=== PATIENT | male | born 1945 | race Caucasian/White ===

== ENCOUNTER 2018-05-07 13:38 | Inpatient (IN) | payer MEDICARE, OTHER ==
[2018-05-07] VITALS (7 sets, daily range): BP systolic 122–140; BP diastolic 62–78
[~2018-05-07] VITALS: Ht 172.7 cm; Wt 75.8 kg
[2018-05-07] MEDS ORDERED: NITROGLYCERIN SUBLINGUAL 0.4 MG BOTTLE OF 25. SL ONE (13:55)
[2018-05-07] MEDS: NITROGLYCERIN SUBLINGUAL 0.4 MG BOTTLE OF 25. SL PRN ×2 (13:58→14:06)
[2018-05-07 14:03] LABS: BASO # 0.1 x10^3/uL (0.0-0.2); BASO % 1 % (0-3); EOS # 0.4 x10^3/uL (0.0-0.7); EOS % 4 % (0-3); HEMATOCRIT 53.4 % (39.0-53.0); HEMOGLOBIN 17.7 g/dL (13.0-17.5); LYMPH # 3.9 x10^3/uL (1.0-4.8); LYMPH % 35 % (24-48); MEAN CORPUSCULAR HEMOGLOBIN 30 pg (25-35); MEAN CORPUSCULAR HGB CONC 33 g/dL (31-37); MEAN CORPUSCULAR VOLUME 91 fL (79-100); MONO # 0.6 x10^3/uL (0.0-1.1); MONO % 6 % (0-9); NEUT # 6.1 x10^3uL (1.8-7.7); NEUT % 54 % (31-73); PLATELET COUNT 206 x10^3/uL (140-400); RED BLOOD COUNT 5.88 x10^6/uL (4.30-5.70); RED CELL DISTRIBUTION WIDTH 13.7 % (11.5-14.5); WHITE BLOOD COUNT 11.2 x10^3/uL (4.0-11.0)
--- NOTE | 2018-05-07 14:09 | RAD ---
EXAM: CHEST 1 VIEW History: Acute respiratory failure COMPARISON: None available. TECHNIQUE: Single portable radiograph of the chest FINDINGS: Low lung volumes and technique accentuates heart size and pulmonary vascularity. Mild cardiomegaly. Left-sided cardiac pacemaker, AICD is identified. There is mild diffuse prominent appearing bilateral interstitial lung markings. IMPRESSION: 1. Mild diffuse prominent appearing bilateral interstitial lung markings likely congestive changes. Electronically signed by: Darion Buenrostro MD (05/07/2018 2:06 PM) [place] [id number]
[2018-05-07 14:13] LABS: BASE EXCESS ABG -4 mmol/L (-3-3); HCO3 ABG 24 mmol/L (21-28); PCO2 ABG 58 mmHg (35-46); PO2 ABG 201 mmHg (65-108); SAT O2 ABG 99 % (92-99)
[2018-05-07 14:13] LABS: PROTHROMBIN TIME PATIENT 13.6 SEC (11.7-14.0)
[2018-05-07 14:14] LABS: CREATININE 1.4 mg/dL (0.7-1.3); GFR 49.8
[2018-05-07 14:16] LABS: FIO2 ABG 60
[2018-05-07 14:19] LABS: ALBUMIN 4.3 g/dL (3.4-5.0); ALBUMIN/GLOBULIN RATIO 1.1 (1.0-1.7); TOTAL BILIRUBIN 1.2 mg/dL (0.2-1.0); TOTAL PROTEIN 8.1 g/dL (6.4-8.2)
--- NOTE | 2018-05-07 14:36 | PHYS DOC ---
Past Medical History Past Medical History: CAD, GERD, High Cholesterol, Hypertension, Pneumonia, Other Additional Past Medical Histor: heart valve Past Surgical History: Cholecystectomy, Pacemaker Additional Past Surgical Histo: with defibrillator; cardiac stent; Alcohol Use: Rarely Drug Use: None Adult General Chief Complaint Chief Complaint: SHORTNESS OF BREATH HPI HPI Patient is a 72 year old m who presents to the ED in acute respiratory failure O2 sat of 81 at triage. Unable to provide history 2/2 acute respiratory failure. Per spouse at bedside pt had acute respiratory failure approx 30 mins prior to arrival, progressed rapidly. Pt denies any chest pain. H/o CAD s/p 3 stents, H/o CHF, s/p pacemaker/defibrillator. H/o hospitalizations for CHF exacerbations but has not had any in the past 8 years. Compliant with home medications. not on lasix. Spouse unable to name home medications. Does not believe he is on a OAC. No history of recent travel/ prolonged. No LE pain/swelling. Review of Systems Review of Systems Unable to obtain 2/2 acuity. Current Medications Current Medications Current Medications Medications (Trade) Dose Ordered Sig/Kelsie Start Time Stop Time Status Last Admin Dose Admin Aspirin (Children'S Aspirin) 324 mg 1X ONCE 05/07/18 14:45 05/07/18 14:46 DC Nitroglycerin (Nitrostat) 0.4 mg STK-MED ONCE 05/07/18 13:55 05/07/18 13:56 DC Allergies Allergies Allergies Coded Allergies Type Severity Reaction Last Updated Verified No Known Drug Allergies 05/07/18 No Physical Exam Physical Exam Constitutional: severe distress, acutely ill appearing. HENT: Normocephalic, atraumatic, Eyes: PERRLA, EOMI, Neck: Bilateral distension of neck veins, Cardiovascular:Tachycardic Lungs & Thorax: Diffuse crackles, tachypneic, severe respiratory distress, significant use of accessory respiratory muscles Abdomen: , soft, no tenderness, no masses, no pulsatile masses. [] Skin: Pale, diffusely baker/blue hue to face. Back: No tenderness, no CVA tenderness. [] Extremities: Cap refill Approx 4 secs to distal extremities, no Edema to bilateral LE Neurologic: Alert and oriented X 3, no focal deficits noted. [] Psychologic: Affect normal, judgement normal, mood normal. [] Current Patient Data Vital Signs Vital Signs Date Time Temp Pulse Resp B/P (MAP) Pulse Ox O2 Delivery O2 Flow Rate FiO2 05/07/18 14:13 102 28 165/89 (114) 99 BiPAP/CPAP 05/07/18 13:38 96.9 96.9 Lab Values Laboratory Tests Test 05/07/18 13:47 05/07/18 13:51 05/07/18 14:00 White Blood Count 11.2 x10^3/uL (4.0-11.0) H Red Blood Count 5.88 x10^6/uL (4.30-5.70) H Hemoglobin 17.7 g/dL (13.0-17.5) H Hematocrit 53.4 % (39.0-53.0) H Mean Corpuscular Volume 91 fL (79-100) Mean Corpuscular Hemoglobin 30 pg (25-35) Mean Corpuscular Hemoglobin Concent 33 g/dL (31-37) Red Cell Distribution Width 13.7 % (11.5-14.5) Platelet Count 206 x10^3/uL (140-400) Neutrophils (%) (Auto) 54 % (31-73) Lymphocytes (%) (Auto) 35 % (24-48) Monocytes (%) (Auto) 6 % (0-9) Eosinophils (%) (Auto) 4 % (0-3) H Basophils (%) (Auto) 1 % (0-3) Neutrophils # (Auto) 6.1 x10^3uL (1.8-7.7) Lymphocytes # (Auto) 3.9 x10^3/uL (1.0-4.8) Monocytes # (Auto) 0.6 x10^3/uL (0.0-1.1) Eosinophils # (Auto) 0.4 x10^3/uL (0.0-0.7) Basophils # (Auto) 0.1 x10^3/uL (0.0-0.2) Prothrombin Time 13.6 SEC (11.7-14.0) Prothrombin Time INR 1.1 (0.8-1.1) PTT 24 SEC (24-38) Sodium Level 136 mmol/L (136-145) Potassium Level 4.0 mmol/L (3.5-5.1) Chloride Level 96 mmol/L (98-107) L Carbon Dioxide Level 30 mmol/L (21-32) Anion Gap 10 (6-14) Blood Urea Nitrogen 16 mg/dL (8-26) Creatinine 1.4 mg/dL (0.7-1.3) H Estimated GFR (Cockcroft-Gault) 49.8 BUN/Creatinine Ratio 11 (6-20) Glucose Level 255 mg/dL (70-99) H Lactic Acid Level 2.9 mmol/L (0.4-2.0) H Calcium Level 9.0 mg/dL (8.5-10.1) Total Bilirubin 1.2 mg/dL (0.2-1.0) H Aspartate Amino Transferase (AST) 17 U/L (15-37) Alanine Aminotransferase (ALT) 20 U/L (16-63) Alkaline Phosphatase 84 U/L (46-116) Troponin I Quantitative 0.031 ng/mL (0.000-0.055) NZ-Cxd-Z-Type Natriuretic Peptide 1003 pg/mL (0-124) H Total Protein 8.1 g/dL (6.4-8.2) Albumin 4.3 g/dL (3.4-5.0) Albumin/Globulin Ratio 1.1 (1.0-1.7) Procalcitonin < 0.10 ng/mL (0.00-0.10) POC Troponin I 0.01 ng/ml (<0.08) O2 Saturation 99 % (92-99) Arterial Blood pH 7.24 (7.35-7.45) L Arterial Blood pCO2 at Patient Temp 58 mmHg (35-46) H Arterial Blood pO2 at Patient Temp 201 mmHg (65-108) H Arterial Blood HCO3 24 mmol/L (21-28) Arterial Blood Base Excess -4 mmol/L (-3-3) L FiO2 60 Laboratory Tests 05/07/18 13:47 Laboratory Tests 05/07/18 13:47 EKG EKG Sinus, tachycardia, diffuse non-specific ST segment changes. [] Radiology/Procedures Radiology/Procedures CXR: IMPRESSION: 1. Mild diffuse prominent appearing bilateral interstitial lung markings likely congestive changes.[] Course & Med Decision Making Course & Med Decision Making Pertinent Labs and Imaging studies reviewed. (See chart for details) []Pt with severe respiratory distress on arrival. O2 as low as 69% on RA. Placed on NRB @15L with no change. Transferred to BiPAP on arrival of RT. HTN, h /o CHF. ?HTN flash pulmonary edema. Given NTG SL x 2 with improvement of symptoms. Tolerating BiPAP well but requiring Inspiratory pressure of 18 to maintain TV of close to 500. Very HTN on arrival with systolic BP 200s, clinical concern for flash pulmonary edema and given NTG SL x 2. BP decreased to 150 systolic over 10 mins with no further medications given. ABG as above with acute respiratory acidosis with question of some questionable underlying metabolic acidosis. Discussed with Dr. Mariee enrollment consultant for hospital service who is agreeable to admission. Patient remains critically ill and will be transferred to the ICU. CXR with some edema but does not seem to correlate with the severity of his acute presentation. There is history of cardiac valvular disease but family and pt do not have any details. Will get stat ECHO to evaluate for decompensated valvular disease as possible pathology as well. Consultations placed for pulmonology and cardiology per Dr. Mariee' s request. Will give patient aspirin. Patient is remained tachycardic but overall improved with control of acute respiratory failure. Dragon Disclaimer Dragon Disclaimer This electronic medical record was generated, in whole or in part, using a voice recognition dictation system. Departure Departure Impression: Primary Impression: Acute respiratory failure Additional Impressions: Congestive heart failure Congestive heart failure due to hypertension Flash pulmonary edema Disposition: ADMITTED INPATIENT Admitting Physician: Rocco Connolly Condition: CRITICAL Referrals: UNKNOWN PCP NAME (PCP) Critical Care Time Critical care time was [65] minutes exclusive of procedures. Time spent in chart review, immediately management the patient, repeat evaluations, bedside care, result review, and discussion with other physician(s) Problem Qualifiers SHELLEY WINSTON DO May 07, 2018 14:36
[2018-05-07] MEDS ORDERED: ASPIRIN CHEWABLE 81 MG TABLET. PO ONE (14:45)
--- NOTE | 2018-05-07 14:57 | PDOC1 ---
History and Physical Date of Admission Date of Admission DATE: 05/07/18 TIME: 14:57 Identification/Chief Complaint Chief Complaint seen in ER today with ,72 year old m who presents to the ED in acute respiratory failure O2 sat of 81 at triage. was able to provide history 2/2 acute respiratory failure. notes he does not adhere to strict sodium diet avoidance Per spouse at bedside pt had acute respiratory failure approx 30 mins prior to arrival, progressed rapidly. Pt denies any chest pain. H/o CAD s/p 3 stents, H/o CHF, s/p pacemaker/defibrillator. H/o hospitalizations for CHF exacerbations but has not had any in the past 8 years. They were shopping at the [employer] today, suddenly felt SOA, Usually follows play reader at [facility] Past Medical History Past Medical History Past Medical History Past Medical History: CAD, GERD, High Cholesterol, Hypertension, Pneumonia, Other Additional Past Medical Histor: heart valve Past Surgical History: Cholecystectomy, Pacemaker Additional Past Surgical Histo: with defibrillator; cardiac stent; Alcohol Use: Rarely Drug Use: None family hx COPD Cardiovascular: Hyperlipidemia Pulmonary: COPD Musculoskeletal: Osteoarthritis ENT: No pertinent hx Family History Family History: Chronic Bronchitis Social History Smoke: 1 pack per day ALCOHOL: rare Drugs: None Current Medications Current Medications Current Medications Nitroglycerin (Nitrostat) 0.4 mg PRN Q5MIN PRN SL CHEST PAIN Last administered on 05/07/18at 14:06; Start 05/07/18 at 14:00 Nitroglycerin (Nitrostat) 0.4 mg STK-MED ONCE SL ; Start 05/07/18 at 13:55; Stop 05/07/18 at 13:56; Status DC Aspirin (Children'S Aspirin) 324 mg 1X ONCE PO ; Start 05/07/18 at 14:45; Stop 05/07/18 at 14:46; Status DC Allergies Allergies: Coded Allergies: No Known Drug Allergies (Unverified , 05/07/18) ROS Review of System 14 PT ROS OTHERWISE NEG General: YES: Fatigue PSYCHOLOGICAL ROS: No: Anxiety, Behavioral Disorder, Concentration difficultie , Decreased libido, Depression, Disorientation, Hallucinations, Hostility, Irritablity, Memory difficulties, Mood Swings, Obsessive thoughts, Physical abuse, Sexual abuse, Sleep disturbances, Suicidal ideation, Other Eyes: No Blurry vision, No Decreased vision, No Double vision, No Dry eyes, No Excessive tearing, No Eye Pain, No Itchy Eyes, No Loss of vision, No Photophobia , No Scotomata, No Uses contacts, No Uses glasses, No Other Hematological and Lymphatic: No: Bleeding Problems, Blood Clots, Blood Transfusions, Brusing, Night Sweats, Pallor, Swollen Lymph Nodes, Other Respiratory: YES: Cough, Shortness of breath, SOB with excertion Gastrointestinal: No Nausea, No Vomiting, No Abdominal Pain, No Diarrhea, No Constipation, No Melena, No Hematochezia, No Other Musculoskeletal: No Gait Disturbance, No Joint Pain, No Joint Stiffness, No Joint Swelling, No Muscle Pain, No Muscular Weakness, No Pain In:, No Swelling In:, No Other Neurological: No Behavorial Changes, No Bowel/Bladder ControlChng, No Confusion , No Dizziness, No Gait Disturbance, No Headaches, No Impaired Coord/balance, No Memory Loss, No Numbness/Tingling, No Seizures, No Speech Problems, No Tremors, No Visual Changes, No Weakness, No Other Physical Exam Physical Exam Physical Exam Physical Exam Constitutional: MOD -severe distress, acutely ill appearing. ON BIPAP HENT: Normocephalic, atraumatic, Eyes: PERRLA, EOMI, Neck: Bilateral distension of neck veins, Cardiovascular:Tachycardic Lungs & Thorax: Diffuse crackles, tachypneic, severe respiratory distress, significant use of accessory respiratory muscles Abdomen: , soft, no tenderness, no masses, no pulsatile masses. [] Skin: Pale, diffusely baker/blue hue to face. Back: No tenderness, no CVA tenderness. [] Extremities: Cap refill Approx 4 secs to distal extremities, no Edema to bilateral LE Neurologic: Alert and oriented X 3, no focal deficits noted. [] Psychologic: Affect normal, judgement normal, mood normal. [] General: Oriented X3, Cooperative, moderate distress HEENT: PERRLA, EOMI, Mucous membr. moist/pink Heart: jugular vein distention Breasts: Not examined Abdomen: Normal bowel sounds, Soft Rectal Exam: not examined Extremities: No cyanosis Neuro: Normal speech, Cranial nerves 3-12 NL Psych/Mental Status: Mental status NL Vitals Vitals Vital Signs Date Time Temp Pulse Resp B/P (MAP) Pulse Ox O2 Delivery O2 Flow Rate FiO2 2/12/19 14:13 102 28 165/89 (114) 99 BiPAP/CPAP 05/07/18 13:38 96.9 96.9 Labs Labs Laboratory Tests Test 05/07/18 13:47 05/07/18 13:51 05/07/18 14:00 White Blood Count 11.2 x10^3/uL (4.0-11.0) Red Blood Count 5.88 x10^6/uL (4.30-5.70) Hemoglobin 17.7 g/dL (13.0-17.5) Hematocrit 53.4 % (39.0-53.0) Mean Corpuscular Volume 91 fL (79-100) Mean Corpuscular Hemoglobin 30 pg (25-35) Mean Corpuscular Hemoglobin Concent 33 g/dL (31-37) Red Cell Distribution Width 13.7 % (11.5-14.5) Platelet Count 206 x10^3/uL (140-400) Neutrophils (%) (Auto) 54 % (31-73) Lymphocytes (%) (Auto) 35 % (24-48) Monocytes (%) (Auto) 6 % (0-9) Eosinophils (%) (Auto) 4 % (0-3) Basophils (%) (Auto) 1 % (0-3) Neutrophils # (Auto) 6.1 x10^3uL (1.8-7.7) Lymphocytes # (Auto) 3.9 x10^3/uL (1.0-4.8) Monocytes # (Auto) 0.6 x10^3/uL (0.0-1.1) Eosinophils # (Auto) 0.4 x10^3/uL (0.0-0.7) Basophils # (Auto) 0.1 x10^3/uL (0.0-0.2) Prothrombin Time 13.6 SEC (11.7-14.0) Prothromb Time International Ratio 1.1 (0.8-1.1) Activated Partial Thromboplast Time 24 SEC (24-38) Sodium Level 136 mmol/L (136-145) Potassium Level 4.0 mmol/L (3.5-5.1) Chloride Level 96 mmol/L (98-107) Carbon Dioxide Level 30 mmol/L (21-32) Anion Gap 10 (6-14) Blood Urea Nitrogen 16 mg/dL (8-26) Creatinine 1.4 mg/dL (0.7-1.3) Estimated GFR (Cockcroft-Gault) 49.8 BUN/Creatinine Ratio 11 (6-20) Glucose Level 255 mg/dL (70-99) Lactic Acid Level 2.9 mmol/L (0.4-2.0) Calcium Level 9.0 mg/dL (8.5-10.1) Total Bilirubin 1.2 mg/dL (0.2-1.0) Aspartate Amino Transf (AST/SGOT) 17 U/L (15-37) Alanine Aminotransferase (ALT/SGPT) 20 U/L (16-63) Alkaline Phosphatase 84 U/L (46-116) Troponin I Quantitative 0.031 ng/mL (0.000-0.055) OX-Pfb-B-Type Natriuretic Peptide 1003 pg/mL (0-124) Total Protein 8.1 g/dL (6.4-8.2) Albumin 4.3 g/dL (3.4-5.0) Albumin/Globulin Ratio 1.1 (1.0-1.7) Procalcitonin < 0.10 ng/mL (0.00-0.10) Bedside Troponin I 0.01 ng/ml (<0.08) O2 Saturation 99 % (92-99) Arterial Blood pH 7.24 (7.35-7.45) Arterial Blood pCO2 at Patient Temp 58 mmHg (35-46) Arterial Blood pO2 at Patient Temp 201 mmHg (65-108) Arterial Blood HCO3 24 mmol/L (21-28) Arterial Blood Base Excess -4 mmol/L (-3-3) FiO2 60 Laboratory Tests Test 05/07/18 13:47 05/07/18 13:51 05/07/18 14:00 White Blood Count 11.2 x10^3/uL (4.0-11.0) Red Blood Count 5.88 x10^6/uL (4.30-5.70) Hemoglobin 17.7 g/dL (13.0-17.5) Hematocrit 53.4 % (39.0-53.0) Mean Corpuscular Volume 91 fL (79-100) Mean Corpuscular Hemoglobin 30 pg (25-35) Mean Corpuscular Hemoglobin Concent 33 g/dL (31-37) Red Cell Distribution Width 13.7 % (11.5-14.5) Platelet Count 206 x10^3/uL (140-400) Neutrophils (%) (Auto) 54 % (31-73) Lymphocytes (%) (Auto) 35 % (24-48) Monocytes (%) (Auto) 6 % (0-9) Eosinophils (%) (Auto) 4 % (0-3) Basophils (%) (Auto) 1 % (0-3) Neutrophils # (Auto) 6.1 x10^3uL (1.8-7.7) Lymphocytes # (Auto) 3.9 x10^3/uL (1.0-4.8) Monocytes # (Auto) 0.6 x10^3/uL (0.0-1.1) Eosinophils # (Auto) 0.4 x10^3/uL (0.0-0.7) Basophils # (Auto) 0.1 x10^3/uL (0.0-0.2) Prothrombin Time 13.6 SEC (11.7-14.0) Prothromb Time International Ratio 1.1 (0.8-1.1) Activated Partial Thromboplast Time 24 SEC (24-38) Sodium Level 136 mmol/L (136-145) Potassium Level 4.0 mmol/L (3.5-5.1) Chloride Level 96 mmol/L (98-107) Carbon Dioxide Level 30 mmol/L (21-32) Anion Gap 10 (6-14) Blood Urea Nitrogen 16 mg/dL (8-26) Creatinine 1.4 mg/dL (0.7-1.3) Estimated GFR (Cockcroft-Gault) 49.8 BUN/Creatinine Ratio 11 (6-20) Glucose Level 255 mg/dL (70-99) Lactic Acid Level 2.9 mmol/L (0.4-2.0) Calcium Level 9.0 mg/dL (8.5-10.1) Total Bilirubin 1.2 mg/dL (0.2-1.0) Aspartate Amino Transf (AST/SGOT) 17 U/L (15-37) Alanine Aminotransferase (ALT/SGPT) 20 U/L (16-63) Alkaline Phosphatase 84 U/L (46-116) Troponin I Quantitative 0.031 ng/mL (0.000-0.055) IB-Csn-B-Type Natriuretic Peptide 1003 pg/mL (0-124) Total Protein 8.1 g/dL (6.4-8.2) Albumin 4.3 g/dL (3.4-5.0) Albumin/Globulin Ratio 1.1 (1.0-1.7) Procalcitonin < 0.10 ng/mL (0.00-0.10) Bedside Troponin I 0.01 ng/ml (<0.08) O2 Saturation 99 % (92-99) Arterial Blood pH 7.24 (7.35-7.45) Arterial Blood pCO2 at Patient Temp 58 mmHg (35-46) Arterial Blood pO2 at Patient Temp 201 mmHg (65-108) Arterial Blood HCO3 24 mmol/L (21-28) Arterial Blood Base Excess -4 mmol/L (-3-3) FiO2 60 Images Images EXAM: CHEST 1 VIEW History: Acute respiratory failure COMPARISON: None available. TECHNIQUE: Single portable radiograph of the chest FINDINGS: Low lung volumes and technique accentuates heart size and pulmonary vascularity. Mild cardiomegaly. Left-sided cardiac pacemaker, AICD is identified. There is mild diffuse prominent appearing bilateral interstitial lung markings. IMPRESSION: 1. Mild diffuse prominent appearing bilateral interstitial lung markings likely congestive changes. Electronically signed by: Darion Buenrostro MD (05/07/2018 2:06 PM) [place] [id number] VTE Prophylaxis Ordered VTE Prophylaxis Devices: Yes VTE Pharmacological Prophylaxi: Yes Assessment/Plan Assessment/Plan IMPRESSION 1. aCUTE HYPOXIC RESP FAILURE 2. COPD EXAC, Acute 3. flash pulmonary edema 4. hx cardiomyopathy 5. tobacco abuse, continuous plan icu bed BIPAP SUPPORT PULM CONSULT Cardiology consult agapito gi and dvt prophylaxis iv diuresis when bp stabilizes ECHO IN ER 46 min cc time SALBADOR SULLIVAN MD May 07, 2018 14:57
[2018-05-07] MEDS ORDERED: PIP/TAZO PER PHARMACY MC PRN (16:30)
[2018-05-07] MEDS ORDERED: PIPERACILLIN/TAZOBACTAM 3.375 GM in IV NORMAL SALINE 50ML 50 ML IV SCH (17:00)
--- NOTE | 2018-05-07 17:00 | CARD ---
MR#: [id number] Date of Study: 05/07/2018 Ordering Physician: SHELLEY WINSTON, Referring Physician: SHELLEY WINSTON, Tech: Rose Pickett, [facility] APPROVED REPORT EXAM: LIMITED Two-dimensional and M-mode echocardiogram with Doppler and color Doppler. Other Information Quality : AverageHR: 90bpm Rhythm : NSR INDICATION Shortness of breath 2D DIMENSIONS Left Atrium(2D)2.9 (1.6-4.0cm)IVSd0.9 (0.7-1.1cm) Aortic Root(2D)3.4 (2.0-3.7cm)LVDd5.3 (3.9-5.9cm) LVOT Diameter2.2 (1.8-2.4cm)PWd0.7 (0.7-1.1cm) LVDs4.9 (2.5-4.0cm)FS (%) 6.4 % SV18.9 ml Aortic Valve AoV Peak Sebastian.91.5cm/sAoV VTI13.1cm AO Peak GR.3.4mmHgLVOT VTI 9.69cm AO Mean GR.2mmHgAVA (VTI)2.80cm2 AI P 1/2 [id number] LEFT VENTRICLE Technically difficult study. The left ventricle is normal size. There is mild concentric left ventric ular hypertrophy. The ejection fraction is mildly decreased. The Ejection Fraction is estimated at 40 %. There is mild global hypokinesis of the left ventricle. RIGHT VENTRICLE The right ventricle is normal size. There is normal right ventricular wall thickness. Systolic functi on is mildly reduced. Device lead noted in RV/RA. ATRIA The left atrium is mildly dilated. The right atrium size is normal. AORTIC VALVE The aortic valve is trileaflet. The aortic valve is normal in structure and function. Doppler and Col or Flow revealed mild to moderate aortic regurgitation. There is no significant aortic valvular steno sis. MITRAL VALVE The mitral valve is normal in structure and function. There is no evidence of mitral valve prolapse. There is no mitral valve stenosis. Doppler and Color Flow revealed mild mitral valve regurgitation no cecilia. TRICUSPID VALVE The tricuspid valve is normal in structure and function. Doppler and Color Flow revealed mild tricusp id valve regurgitation noted. There is no tricuspid valve prolapse or vegetation. There is no tricusp id valve stenosis. PULMONIC VALVE Pulmonic valve not well visualized. GREAT VESSELS The aortic root is normal in size. PERICARDIAL EFFUSION There is a trace pericardial effusion with no hemodynamic significance. Critical Notification Critical Value: No <Conclusion> Technically difficult study. The left ventricle is normal size. The ejection fraction is mildly decreased. The Ejection Fraction is estimated at 40%. There is mild global hypokinesis of the left ventricle. There is mild concentric left ventricular hypertrophy. There is no significant aortic valvular stenosis. Doppler and Color Flow revealed mild to moderate aortic regurgitation. Doppler and Color Flow revealed mild mitral valve regurgitation noted. Doppler and Color Flow revealed mild tricuspid valve regurgitation noted. Signed by : Eric Lund MD Electronically Approved : 05/07/2018 16:59:59
--- NOTE | 2018-05-07 18:13 | PDOC ---
PULMONARY PROGRESS NOTES Vitals Vital Signs Date Time Temp Pulse Resp B/P (MAP) Pulse Ox O2 Delivery O2 Flow Rate FiO2 05/07/18 17:15 98.7 92 30 140/78 (98) 90 Nasal Cannula 2.0 98.7 Labs Laboratory Tests Test 05/07/18 13:47 05/07/18 13:51 05/07/18 14:00 White Blood Count 11.2 x10^3/uL (4.0-11.0) Red Blood Count 5.88 x10^6/uL (4.30-5.70) Hemoglobin 17.7 g/dL (13.0-17.5) Hematocrit 53.4 % (39.0-53.0) Mean Corpuscular Volume 91 fL (79-100) Mean Corpuscular Hemoglobin 30 pg (25-35) Mean Corpuscular Hemoglobin Concent 33 g/dL (31-37) Red Cell Distribution Width 13.7 % (11.5-14.5) Platelet Count 206 x10^3/uL (140-400) Neutrophils (%) (Auto) 54 % (31-73) Lymphocytes (%) (Auto) 35 % (24-48) Monocytes (%) (Auto) 6 % (0-9) Eosinophils (%) (Auto) 4 % (0-3) Basophils (%) (Auto) 1 % (0-3) Neutrophils # (Auto) 6.1 x10^3uL (1.8-7.7) Lymphocytes # (Auto) 3.9 x10^3/uL (1.0-4.8) Monocytes # (Auto) 0.6 x10^3/uL (0.0-1.1) Eosinophils # (Auto) 0.4 x10^3/uL (0.0-0.7) Basophils # (Auto) 0.1 x10^3/uL (0.0-0.2) Prothrombin Time 13.6 SEC (11.7-14.0) Prothromb Time International Ratio 1.1 (0.8-1.1) Activated Partial Thromboplast Time 24 SEC (24-38) Sodium Level 136 mmol/L (136-145) Potassium Level 4.0 mmol/L (3.5-5.1) Chloride Level 96 mmol/L (98-107) Carbon Dioxide Level 30 mmol/L (21-32) Anion Gap 10 (6-14) Blood Urea Nitrogen 16 mg/dL (8-26) Creatinine 1.4 mg/dL (0.7-1.3) Estimated GFR (Cockcroft-Gault) 49.8 BUN/Creatinine Ratio 11 (6-20) Glucose Level 255 mg/dL (70-99) Lactic Acid Level 2.9 mmol/L (0.4-2.0) Calcium Level 9.0 mg/dL (8.5-10.1) Total Bilirubin 1.2 mg/dL (0.2-1.0) Aspartate Amino Transf (AST/SGOT) 17 U/L (15-37) Alanine Aminotransferase (ALT/SGPT) 20 U/L (16-63) Alkaline Phosphatase 84 U/L (46-116) Troponin I Quantitative 0.031 ng/mL (0.000-0.055) FO-Erk-P-Type Natriuretic Peptide 1003 pg/mL (0-124) Total Protein 8.1 g/dL (6.4-8.2) Albumin 4.3 g/dL (3.4-5.0) Albumin/Globulin Ratio 1.1 (1.0-1.7) Procalcitonin < 0.10 ng/mL (0.00-0.10) Bedside Troponin I 0.01 ng/ml (<0.08) O2 Saturation 99 % (92-99) Arterial Blood pH 7.24 (7.35-7.45) Arterial Blood pCO2 at Patient Temp 58 mmHg (35-46) Arterial Blood pO2 at Patient Temp 201 mmHg (65-108) Arterial Blood HCO3 24 mmol/L (21-28) Arterial Blood Base Excess -4 mmol/L (-3-3) FiO2 60 Laboratory Tests Test 05/07/18 13:47 05/07/18 13:51 05/07/18 14:00 White Blood Count 11.2 x10^3/uL (4.0-11.0) Red Blood Count 5.88 x10^6/uL (4.30-5.70) Hemoglobin 17.7 g/dL (13.0-17.5) Hematocrit 53.4 % (39.0-53.0) Mean Corpuscular Volume 91 fL (79-100) Mean Corpuscular Hemoglobin 30 pg (25-35) Mean Corpuscular Hemoglobin Concent 33 g/dL (31-37) Red Cell Distribution Width 13.7 % (11.5-14.5) Platelet Count 206 x10^3/uL (140-400) Neutrophils (%) (Auto) 54 % (31-73) Lymphocytes (%) (Auto) 35 % (24-48) Monocytes (%) (Auto) 6 % (0-9) Eosinophils (%) (Auto) 4 % (0-3) Basophils (%) (Auto) 1 % (0-3) Neutrophils # (Auto) 6.1 x10^3uL (1.8-7.7) Lymphocytes # (Auto) 3.9 x10^3/uL (1.0-4.8) Monocytes # (Auto) 0.6 x10^3/uL (0.0-1.1) Eosinophils # (Auto) 0.4 x10^3/uL (0.0-0.7) Basophils # (Auto) 0.1 x10^3/uL (0.0-0.2) Prothrombin Time 13.6 SEC (11.7-14.0) Prothromb Time International Ratio 1.1 (0.8-1.1) Activated Partial Thromboplast Time 24 SEC (24-38) Sodium Level 136 mmol/L (136-145) Potassium Level 4.0 mmol/L (3.5-5.1) Chloride Level 96 mmol/L (98-107) Carbon Dioxide Level 30 mmol/L (21-32) Anion Gap 10 (6-14) Blood Urea Nitrogen 16 mg/dL (8-26) Creatinine 1.4 mg/dL (0.7-1.3) Estimated GFR (Cockcroft-Gault) 49.8 BUN/Creatinine Ratio 11 (6-20) Glucose Level 255 mg/dL (70-99) Lactic Acid Level 2.9 mmol/L (0.4-2.0) Calcium Level 9.0 mg/dL (8.5-10.1) Total Bilirubin 1.2 mg/dL (0.2-1.0) Aspartate Amino Transf (AST/SGOT) 17 U/L (15-37) Alanine Aminotransferase (ALT/SGPT) 20 U/L (16-63) Alkaline Phosphatase 84 U/L (46-116) Troponin I Quantitative 0.031 ng/mL (0.000-0.055) WX-Ubw-Y-Type Natriuretic Peptide 1003 pg/mL (0-124) Total Protein 8.1 g/dL (6.4-8.2) Albumin 4.3 g/dL (3.4-5.0) Albumin/Globulin Ratio 1.1 (1.0-1.7) Procalcitonin < 0.10 ng/mL (0.00-0.10) Bedside Troponin I 0.01 ng/ml (<0.08) O2 Saturation 99 % (92-99) Arterial Blood pH 7.24 (7.35-7.45) Arterial Blood pCO2 at Patient Temp 58 mmHg (35-46) Arterial Blood pO2 at Patient Temp 201 mmHg (65-108) Arterial Blood HCO3 24 mmol/L (21-28) Arterial Blood Base Excess -4 mmol/L (-3-3) FiO2 60 Impression . ACUTE RESP FAILURE ACUTE PULMONARY EDEMA AECOPD SEE ORDERS AGREE WITH CURRENT RX MAYTE KYLE MD May 07, 2018 18:13
[2018-05-07] MEDS: cefTRIAXone IV Push 1 GM VIAL. IVP SCH (19:47)
[2018-05-07] MEDS: DOXYCYCLINE HYCLATE 100 MG TABLET PO SCH (21:57)
--- NOTE | 2018-05-07 23:59 | CONS ---
DATE OF CONSULTATION: 05/07/2018 ATTENDING PHYSICIAN: Dr. Mariee. REASON FOR CONSULTATION: The patient seen in pulmonary consultation at the request of Dr. Mariee for acute respiratory failure requiring noninvasive ventilation with BiPAP. HISTORY OF PRESENT ILLNESS: The patient is a 72-year-old with a history of coronary artery disease, previous cardiac stenting, presented with subacute onset of shortness of breath. He was severely short of breath, unable to catch his breath. The patient was transferred by EMS to the Emergency Department. Initial arterial blood gas revealed a pH of 7.24, PaCO2 of 58, PaO2 of 201. White count was 11,000. Electrolytes were noted. His x-ray revealed bilateral pulmonary infiltrates compatible with interstitial edema versus viral pneumonitis. The patient is not up-to-date on his flu vaccination. He is up-to-date on his pneumonia vaccination. He did inform me that he had been exposed to respiratory syncytial virus. He continues to smoke. He has a cough, mostly nonproductive. No hemoptysis. No fever, chills, nausea, vomiting, diarrhea. PAST MEDICAL HISTORY: Coronary artery disease with previous PCI, he has got defibrillator in place. There is a history of gastroesophageal reflux, hyperlipidemia, hypertension, previous pneumonia. He has had previous cholecystectomy and pacemaker. PAST SURGICAL HISTORY: As above. ALLERGIES: No known drug allergies. 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 Denies any excessive alcohol intake. REVIEW OF SYSTEMS: As indicated above, otherwise, a 10-point system was reviewed and negative. EYES: No change in visual acuity. HEENT: No nasal congestion or sore throat. PULMONARY: As indicated above. CARDIOVASCULAR: No chest pain or pressure. GASTROINTESTINAL: No nausea, vomiting, diarrhea. GENITOURINARY: No dysuria or frequency. MUSCULOSKELETAL: No localized muscle aches or joint pain. SKIN: No new skin rashes. NEUROLOGIC: No headaches, diplopia or blurred vision. CURRENT MEDICATION: List was reviewed. HOME MEDICATIONS: List was reviewed. FAMILY HISTORY: Noncontributory. No significant lung disorders. PHYSICAL EXAMINATION: GENERAL: The patient was in no respiratory distress. VITAL SIGNS: Stable. O2 saturation was greater than 92%. HEENT: Eyes, the sclerae were nonicteric. NECK: Jugular venous distention was not elevated. No lymphadenopathy. CHEST: Full expansion. LUNGS: Crackles throughout both lung vargas. CARDIOVASCULAR: Regular rate and rhythm with S1, S2, no S3. ABDOMEN: Soft, nontender, nondistended. EXTREMITIES: No clubbing, cyanosis. Minimal edema. NEUROLOGIC: The patient was awake, alert, following commands. A detailed neuro exam was not performed. LABORATORY DATA: Labs were reviewed. White count was 11,000, hemoglobin 17, hematocrit 53. Arterial blood gas as indicated above. INR was 1.1. Electrolytes were noted. IMPRESSION: 1. Acute hypoxemic respiratory failure. 2. Acute suspect diastolic heart failure on top of systolic heart failure. 3. Acute exacerbation of chronic obstructive pulmonary disease. 4. Coronary artery disease with previous percutaneous coronary intervention. 5. Cardiomyopathy, ejection fraction of 40%. 6. Tobacco dependent. 7. Hyperlipidemia. 8. Hypertension. PLAN: 1. We will continue p.r.n. BiPAP. 2. Diurese. 3. Empiric antibiotics. 4. Follow Cardiology input. 5. Rule out myocardial infarction. 6. Check calcitonin level. I do appreciate the privilege in sharing this patient's care. MAYTE KYLE MD DR: [id number]/[id number] JOB#: [id number] / [id number]
[2018-05-08] VITALS (25 sets, daily range): BP systolic 110–178; BP diastolic 55–89
[2018-05-08 05:45] LABS: BASO # 0.1 x10^3/uL (0.0-0.2); BASO % 1 % (0-3); EOS # 0.2 x10^3/uL (0.0-0.7); EOS % 3 % (0-3); HEMATOCRIT 46.9 % (39.0-53.0); HEMOGLOBIN 15.6 g/dL (13.0-17.5); LYMPH # 2.2 x10^3/uL (1.0-4.8); LYMPH % 26 % (24-48); MEAN CORPUSCULAR HEMOGLOBIN 30 pg (25-35); MEAN CORPUSCULAR HGB CONC 33 g/dL (31-37); MEAN CORPUSCULAR VOLUME 89 fL (79-100); MONO # 0.5 x10^3/uL (0.0-1.1); MONO % 6 % (0-9); NEUT # 5.4 x10^3uL (1.8-7.7); NEUT % 64 % (31-73); PLATELET COUNT 145 x10^3/uL (140-400); RED BLOOD COUNT 5.24 x10^6/uL (4.30-5.70); RED CELL DISTRIBUTION WIDTH 13.6 % (11.5-14.5); WHITE BLOOD COUNT 8.4 x10^3/uL (4.0-11.0)
[2018-05-08 06:17] LABS: ALBUMIN 3.5 g/dL (3.4-5.0); ALBUMIN/GLOBULIN RATIO 1.1 (1.0-1.7); CALCIUM 9.1 mg/dL (8.5-10.1); CREATININE 1.3 mg/dL (0.7-1.3); GFR 54.3; POTASSIUM 4.2 mmol/L (3.5-5.1); TOTAL PROTEIN 6.8 g/dL (6.4-8.2)
--- NOTE | 2018-05-08 08:04 | RAD ---
Portable chest, 05/08/2018: HISTORY: Congestive heart failure Comparison is made to a study from 05/07/2018. A left sided AICD remains in place with the tip of its single lead overlying the right ventricle. The heart size and pulmonary vascularity are normal. There is scarring over the pulmonary apices. No pulmonary infiltrate is seen. There is no evidence of pleural fluid. IMPRESSION: No acute cardiopulmonary abnormality is detected. Electronically signed by: Omar Baig MD (05/08/2018 8:01 AM) [facility]
[2018-05-08 08:21] LABS: CHOLESTEROL/HDL RATIO 3.7
--- NOTE | 2018-05-08 08:27 | NUR ---
Mildred Zuñiga APRN notified of Troponin elevated from 0.140 to 0.730. Orders to make patient NPO received.
--- NOTE | 2018-05-08 08:53 | PDOC ---
PULMONARY PROGRESS NOTES Subjective PT SEEN AFTER CATH SPOKE WITH DR SANTOS Vitals Vital Signs Date Time Temp Pulse Resp B/P (MAP) Pulse Ox O2 Delivery O2 Flow Rate FiO2 05/08/18 06:00 81 22 134/78 (96) 98 Nasal Cannula 2.0 05/08/18 04:10 97.5 97.5 ROS: No Nausea, No Chest Pain, No Abdominal Pain, No Increase Cough General: Alert Lungs: Crackles Cardiovascular: S1, S2 Abdomen: Soft Neuro Exam: Alert Extremities: No Edema Skin: Warm Labs Laboratory Tests Test 05/07/18 13:47 05/07/18 13:51 05/07/18 14:00 05/07/18 18:00 White Blood Count 11.2 x10^3/uL (4.0-11.0) Red Blood Count 5.88 x10^6/uL (4.30-5.70) Hemoglobin 17.7 g/dL (13.0-17.5) Hematocrit 53.4 % (39.0-53.0) Mean Corpuscular Volume 91 fL (79-100) Mean Corpuscular Hemoglobin 30 pg (25-35) Mean Corpuscular Hemoglobin Concent 33 g/dL (31-37) Red Cell Distribution Width 13.7 % (11.5-14.5) Platelet Count 206 x10^3/uL (140-400) Neutrophils (%) (Auto) 54 % (31-73) Lymphocytes (%) (Auto) 35 % (24-48) Monocytes (%) (Auto) 6 % (0-9) Eosinophils (%) (Auto) 4 % (0-3) Basophils (%) (Auto) 1 % (0-3) Neutrophils # (Auto) 6.1 x10^3uL (1.8-7.7) Lymphocytes # (Auto) 3.9 x10^3/uL (1.0-4.8) Monocytes # (Auto) 0.6 x10^3/uL (0.0-1.1) Eosinophils # (Auto) 0.4 x10^3/uL (0.0-0.7) Basophils # (Auto) 0.1 x10^3/uL (0.0-0.2) Prothrombin Time 13.6 SEC (11.7-14.0) Prothromb Time International Ratio 1.1 (0.8-1.1) Activated Partial Thromboplast Time 24 SEC (24-38) Sodium Level 136 mmol/L (136-145) Potassium Level 4.0 mmol/L (3.5-5.1) Chloride Level 96 mmol/L (98-107) Carbon Dioxide Level 30 mmol/L (21-32) Anion Gap 10 (6-14) Blood Urea Nitrogen 16 mg/dL (8-26) Creatinine 1.4 mg/dL (0.7-1.3) Estimated GFR (Cockcroft-Gault) 49.8 BUN/Creatinine Ratio 11 (6-20) Glucose Level 255 mg/dL (70-99) Lactic Acid Level 2.9 mmol/L (0.4-2.0) 1.3 mmol/L (0.4-2.0) Calcium Level 9.0 mg/dL (8.5-10.1) Total Bilirubin 1.2 mg/dL (0.2-1.0) Aspartate Amino Transf (AST/SGOT) 17 U/L (15-37) Alanine Aminotransferase (ALT/SGPT) 20 U/L (16-63) Alkaline Phosphatase 84 U/L (46-116) Troponin I Quantitative 0.031 ng/mL (0.000-0.055) 0.140 ng/mL (0.000-0.055) ZO-Ikf-U-Type Natriuretic Peptide 1003 pg/mL (0-124) Total Protein 8.1 g/dL (6.4-8.2) Albumin 4.3 g/dL (3.4-5.0) Albumin/Globulin Ratio 1.1 (1.0-1.7) Procalcitonin < 0.10 ng/mL (0.00-0.10) Bedside Troponin I 0.01 ng/ml (<0.08) O2 Saturation 99 % (92-99) Arterial Blood pH 7.24 (7.35-7.45) Arterial Blood pCO2 at Patient Temp 58 mmHg (35-46) Arterial Blood pO2 at Patient Temp 201 mmHg (65-108) Arterial Blood HCO3 24 mmol/L (21-28) Arterial Blood Base Excess -4 mmol/L (-3-3) FiO2 60 Test 05/08/18 04:25 White Blood Count 8.4 x10^3/uL (4.0-11.0) Red Blood Count 5.24 x10^6/uL (4.30-5.70) Hemoglobin 15.6 g/dL (13.0-17.5) Hematocrit 46.9 % (39.0-53.0) Mean Corpuscular Volume 89 fL (79-100) Mean Corpuscular Hemoglobin 30 pg (25-35) Mean Corpuscular Hemoglobin Concent 33 g/dL (31-37) Red Cell Distribution Width 13.6 % (11.5-14.5) Platelet Count 145 x10^3/uL (140-400) Neutrophils (%) (Auto) 64 % (31-73) Lymphocytes (%) (Auto) 26 % (24-48) Monocytes (%) (Auto) 6 % (0-9) Eosinophils (%) (Auto) 3 % (0-3) Basophils (%) (Auto) 1 % (0-3) Neutrophils # (Auto) 5.4 x10^3uL (1.8-7.7) Lymphocytes # (Auto) 2.2 x10^3/uL (1.0-4.8) Monocytes # (Auto) 0.5 x10^3/uL (0.0-1.1) Eosinophils # (Auto) 0.2 x10^3/uL (0.0-0.7) Basophils # (Auto) 0.1 x10^3/uL (0.0-0.2) Sodium Level 137 mmol/L (136-145) Potassium Level 4.2 mmol/L (3.5-5.1) Chloride Level 100 mmol/L (98-107) Carbon Dioxide Level 29 mmol/L (21-32) Anion Gap 8 (6-14) Blood Urea Nitrogen 17 mg/dL (8-26) Creatinine 1.3 mg/dL (0.7-1.3) Estimated GFR (Cockcroft-Gault) 54.3 BUN/Creatinine Ratio 13 (6-20) Glucose Level 147 mg/dL (70-99) Calcium Level 9.1 mg/dL (8.5-10.1) Total Bilirubin 1.0 mg/dL (0.2-1.0) Aspartate Amino Transf (AST/SGOT) 14 U/L (15-37) Alanine Aminotransferase (ALT/SGPT) 20 U/L (16-63) Alkaline Phosphatase 67 U/L (46-116) Troponin I Quantitative 0.730 ng/mL (0.000-0.055) Total Protein 6.8 g/dL (6.4-8.2) Albumin 3.5 g/dL (3.4-5.0) Albumin/Globulin Ratio 1.1 (1.0-1.7) Triglycerides Level 131 mg/dL (0-150) Cholesterol Level 142 mg/dL (0-200) LDL Cholesterol, Calculated 78 mg/dL (0-100) VLDL Cholesterol, Calculated 26 mg/dL (0-40) Non-HDL Cholesterol Calculated 104 mg/dL (0-129) HDL Cholesterol 38 mg/dL (40-60) Cholesterol/HDL Ratio 3.7 Thyroid Stimulating Hormone (TSH) 2.241 uIU/mL (0.358-3.74) Laboratory Tests Test 05/07/18 13:47 05/07/18 13:51 05/07/18 14:00 05/07/18 18:00 White Blood Count 11.2 x10^3/uL (4.0-11.0) Red Blood Count 5.88 x10^6/uL (4.30-5.70) Hemoglobin 17.7 g/dL (13.0-17.5) Hematocrit 53.4 % (39.0-53.0) Mean Corpuscular Volume 91 fL (79-100) Mean Corpuscular Hemoglobin 30 pg (25-35) Mean Corpuscular Hemoglobin Concent 33 g/dL (31-37) Red Cell Distribution Width 13.7 % (11.5-14.5) Platelet Count 206 x10^3/uL (140-400) Neutrophils (%) (Auto) 54 % (31-73) Lymphocytes (%) (Auto) 35 % (24-48) Monocytes (%) (Auto) 6 % (0-9) Eosinophils (%) (Auto) 4 % (0-3) Basophils (%) (Auto) 1 % (0-3) Neutrophils # (Auto) 6.1 x10^3uL (1.8-7.7) Lymphocytes # (Auto) 3.9 x10^3/uL (1.0-4.8) Monocytes # (Auto) 0.6 x10^3/uL (0.0-1.1) Eosinophils # (Auto) 0.4 x10^3/uL (0.0-0.7) Basophils # (Auto) 0.1 x10^3/uL (0.0-0.2) Prothrombin Time 13.6 SEC (11.7-14.0) Prothromb Time International Ratio 1.1 (0.8-1.1) Activated Partial Thromboplast Time 24 SEC (24-38) Sodium Level 136 mmol/L (136-145) Potassium Level 4.0 mmol/L (3.5-5.1) Chloride Level 96 mmol/L (98-107) Carbon Dioxide Level 30 mmol/L (21-32) Anion Gap 10 (6-14) Blood Urea Nitrogen 16 mg/dL (8-26) Creatinine 1.4 mg/dL (0.7-1.3) Estimated GFR (Cockcroft-Gault) 49.8 BUN/Creatinine Ratio 11 (6-20) Glucose Level 255 mg/dL (70-99) Lactic Acid Level 2.9 mmol/L (0.4-2.0) 1.3 mmol/L (0.4-2.0) Calcium Level 9.0 mg/dL (8.5-10.1) Total Bilirubin 1.2 mg/dL (0.2-1.0) Aspartate Amino Transf (AST/SGOT) 17 U/L (15-37) Alanine Aminotransferase (ALT/SGPT) 20 U/L (16-63) Alkaline Phosphatase 84 U/L (46-116) Troponin I Quantitative 0.031 ng/mL (0.000-0.055) 0.140 ng/mL (0.000-0.055) RH-Zgn-A-Type Natriuretic Peptide 1003 pg/mL (0-124) Total Protein 8.1 g/dL (6.4-8.2) Albumin 4.3 g/dL (3.4-5.0) Albumin/Globulin Ratio 1.1 (1.0-1.7) Procalcitonin < 0.10 ng/mL (0.00-0.10) Bedside Troponin I 0.01 ng/ml (<0.08) O2 Saturation 99 % (92-99) Arterial Blood pH 7.24 (7.35-7.45) Arterial Blood pCO2 at Patient Temp 58 mmHg (35-46) Arterial Blood pO2 at Patient Temp 201 mmHg (65-108) Arterial Blood HCO3 24 mmol/L (21-28) Arterial Blood Base Excess -4 mmol/L (-3-3) FiO2 60 Test 05/08/18 04:25 White Blood Count 8.4 x10^3/uL (4.0-11.0) Red Blood Count 5.24 x10^6/uL (4.30-5.70) Hemoglobin 15.6 g/dL (13.0-17.5) Hematocrit 46.9 % (39.0-53.0) Mean Corpuscular Volume 89 fL (79-100) Mean Corpuscular Hemoglobin 30 pg (25-35) Mean Corpuscular Hemoglobin Concent 33 g/dL (31-37) Red Cell Distribution Width 13.6 % (11.5-14.5) Platelet Count 145 x10^3/uL (140-400) Neutrophils (%) (Auto) 64 % (31-73) Lymphocytes (%) (Auto) 26 % (24-48) Monocytes (%) (Auto) 6 % (0-9) Eosinophils (%) (Auto) 3 % (0-3) Basophils (%) (Auto) 1 % (0-3) Neutrophils # (Auto) 5.4 x10^3uL (1.8-7.7) Lymphocytes # (Auto) 2.2 x10^3/uL (1.0-4.8) Monocytes # (Auto) 0.5 x10^3/uL (0.0-1.1) Eosinophils # (Auto) 0.2 x10^3/uL (0.0-0.7) Basophils # (Auto) 0.1 x10^3/uL (0.0-0.2) Sodium Level 137 mmol/L (136-145) Potassium Level 4.2 mmol/L (3.5-5.1) Chloride Level 100 mmol/L (98-107) Carbon Dioxide Level 29 mmol/L (21-32) Anion Gap 8 (6-14) Blood Urea Nitrogen 17 mg/dL (8-26) Creatinine 1.3 mg/dL (0.7-1.3) Estimated GFR (Cockcroft-Gault) 54.3 BUN/Creatinine Ratio 13 (6-20) Glucose Level 147 mg/dL (70-99) Calcium Level 9.1 mg/dL (8.5-10.1) Total Bilirubin 1.0 mg/dL (0.2-1.0) Aspartate Amino Transf (AST/SGOT) 14 U/L (15-37) Alanine Aminotransferase (ALT/SGPT) 20 U/L (16-63) Alkaline Phosphatase 67 U/L (46-116) Troponin I Quantitative 0.730 ng/mL (0.000-0.055) Total Protein 6.8 g/dL (6.4-8.2) Albumin 3.5 g/dL (3.4-5.0) Albumin/Globulin Ratio 1.1 (1.0-1.7) Triglycerides Level 131 mg/dL (0-150) Cholesterol Level 142 mg/dL (0-200) LDL Cholesterol, Calculated 78 mg/dL (0-100) VLDL Cholesterol, Calculated 26 mg/dL (0-40) Non-HDL Cholesterol Calculated 104 mg/dL (0-129) HDL Cholesterol 38 mg/dL (40-60) Cholesterol/HDL Ratio 3.7 Thyroid Stimulating Hormone (TSH) 2.241 uIU/mL (0.358-3.74) Impression . IMPRESSION: 1. Acute hypoxemic respiratory failure. 2. Acute suspect diastolic heart failure on top of systolic heart failure. 3. Acute exacerbation of chronic obstructive pulmonary disease. 4. Coronary artery disease with previous percutaneous coronary intervention. 5. Cardiomyopathy, ejection fraction of 30% 6. Tobacco dependent. 7. Hyperlipidemia. 8. Hypertension. 9. DEMAND ISCHEMIA Plan . CATH REPORT NOTED WILL CONTINUE THE SAME PROCALCITONIN IS LOW ALEJAE PRN MAYTE WHARTON MD May 08, 2018 08:53
--- NOTE | 2018-05-08 09:01 | PDOC2 ---
CARDIAC CONSULT DATE OF CONSULT Date of Consult DATE: 05/08/18 TIME: 08:54 REASON FOR CONSULT Reason for Consult: Malignant HTN REFERRING PHYSICIAN Referring Physician: Dr. Mariee SOURCE Source: Chart review, Patient HISTORY OF PRESENT ILLNESS HISTORY OF PRESENT ILLNESS This is a 72 yo male who presented secondary to shortness of breath. Patient reports feeling his usual self yesterday morning. [place]. Had acute onset of shortness of breath. Was unable to catch his breath so EMS was called. Was is respiratory distress upon arrival requiring BiPAP. Denies any chest pain. Did experience some dizziness, diaphoresis, and nausea/vomiting. BP was significantly elevated upon arrival. Denies any recent illness/fevers. No recent orthopnea or LE edema. Has had some mild fatigue recent. Does have a history of CAD s/p stents x3 in 2010. Suffered an IL at that time and presented to the hospital with significant chest pain. Was noted with ischemic cardiomyopathy and underwent [employer] ICD implantation in 2010. 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 No recent echocardiogram, stress test, or heart catheterization. Reports compliance with medications. PAST MEDICAL HISTORY Cardiovascular: CAD, CHF, HTN, Hyperlipidemia Pulmonary: COPD, Pneumonia CENTRAL NERVOUS SYSTEM: Other (no pertinent hx) GI: GERD Heme/Onc: No pertinent hx Psych: No pertinent hx Musculoskeletal: Other (no pertinent hx) Rheumatologic: No pertinent hx Infectious disease: No pertinent hx ENT: No pertinent hx Renal/: Chronic renal insuff, Benign prostatic enlarg. Endocrine: Diabetes Dermatology: Other (skin CA, nose) PAST SURGICAL HISTORY Past Surgical History: Pacemaker (AICD ([employer])), Cholecystectomy FAMILY HISTORY Family History: Hypertension SOCIAL HISTORY Smoke: 1 pack per day ALCOHOL: rare Drugs: None Lives: with Family CURRENT MEDICATIONS CURRENT MEDICATIONS Current Medications Medications (Trade) Dose Ordered Sig/Kelsie Route PRN Reason Start Time Stop Time Status Last Admin Dose Admin Nitroglycerin (Nitrostat) 0.4 mg PRN Q5MIN PRN SL CHEST PAIN 05/07/18 14:00 05/07/18 14:06 Aspirin (Children'S Aspirin) 324 mg 1X ONCE PO 05/07/18 14:45 05/07/18 14:46 DC 05/07/18 15:26 Piperacillin Sod/ Tazobactam Sod 3.375 gm/Sodium Chloride 50 ml @ 100 mls/hr Q6HRS IV 05/07/18 17:00 05/07/18 18:13 DC 05/07/18 16:54 Ceftriaxone Sodium (Rocephin) 1 gm Q24H IVP 05/07/18 19:00 05/07/18 19:47 Doxycycline Hyclate (Vibra-Tab) 100 mg BID PO 05/07/18 21:00 05/07/18 21:57 ALLERGIES ALLERGIES: Coded Allergies: No Known Drug Allergies (Unverified , 05/07/18) ROS Review of System 14 point ROS conducted with pertinent positives noted above in HPI. PHYSICAL EXAM General: Alert, Oriented X3, Cooperative, No acute distress HEENT: Atraumatic Lungs: Clear to auscultation, Normal air movement Heart: Regular rate, Normal S1, Normal S2, Other (2/6 systolic murmur ) Abdomen: Soft, No tenderness Extremities: No edema, Normal pulses Skin: No significant lesion Neuro: Normal speech, Sensation intact Psych/Mental Status: Mental status NL, Mood NL MUSCULOSKELETAL: No deformity VITALS VITALS Vital Signs Date Time Temp Pulse Resp B/P (MAP) Pulse Ox O2 Delivery O2 Flow Rate FiO2 05/08/18 06:00 81 22 134/78 (96) 98 Nasal Cannula 2.0 05/08/18 04:10 97.5 97.5 LABS Lab: Laboratory Tests Test 05/07/18 13:47 05/07/18 13:51 05/07/18 14:00 05/07/18 18:00 White Blood Count 11.2 x10^3/uL (4.0-11.0) Red Blood Count 5.88 x10^6/uL (4.30-5.70) Hemoglobin 17.7 g/dL (13.0-17.5) Hematocrit 53.4 % (39.0-53.0) Mean Corpuscular Volume 91 fL (79-100) Mean Corpuscular Hemoglobin 30 pg (25-35) Mean Corpuscular Hemoglobin Concent 33 g/dL (31-37) Red Cell Distribution Width 13.7 % (11.5-14.5) Platelet Count 206 x10^3/uL (140-400) Neutrophils (%) (Auto) 54 % (31-73) Lymphocytes (%) (Auto) 35 % (24-48) Monocytes (%) (Auto) 6 % (0-9) Eosinophils (%) (Auto) 4 % (0-3) Basophils (%) (Auto) 1 % (0-3) Neutrophils # (Auto) 6.1 x10^3uL (1.8-7.7) Lymphocytes # (Auto) 3.9 x10^3/uL (1.0-4.8) Monocytes # (Auto) 0.6 x10^3/uL (0.0-1.1) Eosinophils # (Auto) 0.4 x10^3/uL (0.0-0.7) Basophils # (Auto) 0.1 x10^3/uL (0.0-0.2) Prothrombin Time 13.6 SEC (11.7-14.0) Prothromb Time International Ratio 1.1 (0.8-1.1) Activated Partial Thromboplast Time 24 SEC (24-38) Sodium Level 136 mmol/L (136-145) Potassium Level 4.0 mmol/L (3.5-5.1) Chloride Level 96 mmol/L (98-107) Carbon Dioxide Level 30 mmol/L (21-32) Anion Gap 10 (6-14) Blood Urea Nitrogen 16 mg/dL (8-26) Creatinine 1.4 mg/dL (0.7-1.3) Estimated GFR (Cockcroft-Gault) 49.8 BUN/Creatinine Ratio 11 (6-20) Glucose Level 255 mg/dL (70-99) Lactic Acid Level 2.9 mmol/L (0.4-2.0) 1.3 mmol/L (0.4-2.0) Calcium Level 9.0 mg/dL (8.5-10.1) Total Bilirubin 1.2 mg/dL (0.2-1.0) Aspartate Amino Transf (AST/SGOT) 17 U/L (15-37) Alanine Aminotransferase (ALT/SGPT) 20 U/L (16-63) Alkaline Phosphatase 84 U/L (46-116) Troponin I Quantitative 0.031 ng/mL (0.000-0.055) 0.140 ng/mL (0.000-0.055) BX-Eed-Y-Type Natriuretic Peptide 1003 pg/mL (0-124) Total Protein 8.1 g/dL (6.4-8.2) Albumin 4.3 g/dL (3.4-5.0) Albumin/Globulin Ratio 1.1 (1.0-1.7) Procalcitonin < 0.10 ng/mL (0.00-0.10) Bedside Troponin I 0.01 ng/ml (<0.08) O2 Saturation 99 % (92-99) Arterial Blood pH 7.24 (7.35-7.45) Arterial Blood pCO2 at Patient Temp 58 mmHg (35-46) Arterial Blood pO2 at Patient Temp 201 mmHg (65-108) Arterial Blood HCO3 24 mmol/L (21-28) Arterial Blood Base Excess -4 mmol/L (-3-3) FiO2 60 Test 05/08/18 04:25 White Blood Count 8.4 x10^3/uL (4.0-11.0) Red Blood Count 5.24 x10^6/uL (4.30-5.70) Hemoglobin 15.6 g/dL (13.0-17.5) Hematocrit 46.9 % (39.0-53.0) Mean Corpuscular Volume 89 fL (79-100) Mean Corpuscular Hemoglobin 30 pg (25-35) Mean Corpuscular Hemoglobin Concent 33 g/dL (31-37) Red Cell Distribution Width 13.6 % (11.5-14.5) Platelet Count 145 x10^3/uL (140-400) Neutrophils (%) (Auto) 64 % (31-73) Lymphocytes (%) (Auto) 26 % (24-48) Monocytes (%) (Auto) 6 % (0-9) Eosinophils (%) (Auto) 3 % (0-3) Basophils (%) (Auto) 1 % (0-3) Neutrophils # (Auto) 5.4 x10^3uL (1.8-7.7) Lymphocytes # (Auto) 2.2 x10^3/uL (1.0-4.8) Monocytes # (Auto) 0.5 x10^3/uL (0.0-1.1) Eosinophils # (Auto) 0.2 x10^3/uL (0.0-0.7) Basophils # (Auto) 0.1 x10^3/uL (0.0-0.2) Sodium Level 137 mmol/L (136-145) Potassium Level 4.2 mmol/L (3.5-5.1) Chloride Level 100 mmol/L (98-107) Carbon Dioxide Level 29 mmol/L (21-32) Anion Gap 8 (6-14) Blood Urea Nitrogen 17 mg/dL (8-26) Creatinine 1.3 mg/dL (0.7-1.3) Estimated GFR (Cockcroft-Gault) 54.3 BUN/Creatinine Ratio 13 (6-20) Glucose Level 147 mg/dL (70-99) Calcium Level 9.1 mg/dL (8.5-10.1) Total Bilirubin 1.0 mg/dL (0.2-1.0) Aspartate Amino Transf (AST/SGOT) 14 U/L (15-37) Alanine Aminotransferase (ALT/SGPT) 20 U/L (16-63) Alkaline Phosphatase 67 U/L (46-116) Troponin I Quantitative 0.730 ng/mL (0.000-0.055) Total Protein 6.8 g/dL (6.4-8.2) Albumin 3.5 g/dL (3.4-5.0) Albumin/Globulin Ratio 1.1 (1.0-1.7) Triglycerides Level 131 mg/dL (0-150) Cholesterol Level 142 mg/dL (0-200) LDL Cholesterol, Calculated 78 mg/dL (0-100) VLDL Cholesterol, Calculated 26 mg/dL (0-40) Non-HDL Cholesterol Calculated 104 mg/dL (0-129) HDL Cholesterol 38 mg/dL (40-60) Cholesterol/HDL Ratio 3.7 Thyroid Stimulating Hormone (TSH) 2.241 uIU/mL (0.358-3.74) ECHOCARDIOGRAM ECHOCARDIOGRAM <Conclusion> Technically difficult study. The left ventricle is normal size. The ejection fraction is mildly decreased. The Ejection Fraction is estimated at 40%. There is mild global hypokinesis of the left ventricle. There is mild concentric left ventricular hypertrophy. There is no significant aortic valvular stenosis. Doppler and Color Flow revealed mild to moderate aortic regurgitation. Doppler and Color Flow revealed mild mitral valve regurgitation noted. Doppler and Color Flow revealed mild tricuspid valve regurgitation noted. DATE: 05/07/18 1700 ASSESSMENT/PLAN ASSESSMENT/PLAN 1. Acute respiratory failure; initial CXR with possible pul edema. CXR this am with resolution despite no diuretics. 2. Mild acute on chronic systolic HF; BNP mildly elevated, but CXR not consistent with significant decompensation 3. Ischemic cardiomypathy; s/p AICD ([employer]). Echo showed LVEF 40% 4. Accelerated HTN; now controlled 5. NSTEMI; highest 0.730. Possibly type II, demand ischemia in the setting of respiratory failure and accelerated HTN, but type 1 cannot be ruled out. 6. Hyperlipidemia; LDL 78. statin 7. Diabetes, II: as PCP 8. 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 Etiology of acute on-set respiratory unclear. Given presentation and significant history of CAD and ICM, recommend heart catheterization to r/o obstructive disease. R/b/a discussed with patient and he is agreeable. KEATON CASTELLANOS APRN May 08, 2018 09:01
--- NOTE | 2018-05-08 09:25 | NUR ---
SS following for discharge planning. Pt is from home with spouse and currently requiring oxygen. No PT/OT evaluations at this time or discharge needs notes. SS will continue to follow for pending discharge needs.
[2018-05-08] MEDS: DOXYCYCLINE HYCLATE 100 MG TABLET PO SCH ×2 (09:47→21:17)
--- NOTE | 2018-05-08 10:01 | NUR ---
[facility] notified of need for pacemaker/aicd interrogation.
[2018-05-08] MEDS: ASPIRIN ENTERIC COATED 81 MG TABLET.DR. PO SCH (10:47)
[2018-05-08] MEDS: CARVEDILOL 6.25 MG TABLET. PO SCH ×2 (10:48→17:24)
[2018-05-08] MEDS ORDERED: METF10007 PO (11:53)
[2018-05-08] MEDS ORDERED: CARV12.511 PO (11:53)
[2018-05-08] MEDS ORDERED: SIMV40TA3 PO (11:53)
[2018-05-08] MEDS ORDERED: LOSA-73 PO (11:53)
[2018-05-08] MEDS ORDERED: ROPI1TAB PO (11:53)
[2018-05-08] MEDS ORDERED: ASPI-612 PO (11:53)
[2018-05-08] MEDS ORDERED: GLIP10TA13 PO (11:53)
[2018-05-08] MEDS ORDERED: SILD20TA2 PO (11:53)
[2018-05-08] MEDS ORDERED: OMEG1CAP6 PO (11:53)
[2018-05-08] MEDS ORDERED: CHOL10003 PO (11:53)
[2018-05-08] MEDS ORDERED: OMEP40CA5 PO (11:53)
[2018-05-08] MEDS ORDERED: LIDOCAINE 1% Multi-Dose 20 ML VIAL. ONE (12:39)
[2018-05-08] MEDS ORDERED: IODIXANOL 320 MG/ML 100 ML VIAL. ONE (12:39)
[2018-05-08] MEDS ORDERED: MIDAZOLAM HCL/PF 2 MG/2 ML VIAL. ONE (13:00)
[2018-05-08] MEDS ORDERED: fentaNYL PF VIAL 100 MCG/2 ML VIAL ONE (13:00)
--- NOTE | 2018-05-08 13:08 | NUR ---
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
[2018-05-08] MEDS ORDERED: IODIXANOL 320 MG/ML 100 ML VIAL. IART ONE (13:15)
[2018-05-08] MEDS ORDERED: fentaNYL PF VIAL 100 MCG/2 ML VIAL IV ONE (13:15)
[2018-05-08] MEDS ORDERED: MIDAZOLAM HCL/PF 2 MG/2 ML VIAL. IV ONE (13:15)
[2018-05-08] MEDS ORDERED: LIDOCAINE 1% Multi-Dose 20 ML VIAL. INJ ONE (13:15)
--- NOTE | 2018-05-08 13:20 | PDOC ---
PROGRESS NOTES Chief Complaint Chief Complaint shortness of breath without chest pain acute respiratory failure, O2 81% in ED. H/o CAD s/p 3 stents, H/o CHF, s/p pacemaker/defibrillator. H/o hospitalizations for CHF exacerbations zipper trimmer at [facility] History of Present Illness History of Present Illness Mr. Simmons 72/M who was seen and examined in the ICU. He was sitting upright bedside with his present. He was alert, oriented, and cooperative. He was admitted to ED on 05/07/18 for shortness of breath without chest pain while out shopping at the [employer]. He has past medical history of coronary artery disease c/ 3 stents, congestive heart failure c/ pacemaker/debrillator, and history of previous hospitalizations for CHF exacerbations. He is normally followed by zipper trimmer in [place]. ED w/u demonstrated mild elevation in troponin at 0.730 and possible pulm edema. Upon examination today in the ICU - cough present but clear to auscultation bilaterally without edema. He is currently on Rocephin and Doxycycline. He will be going to ear mold laboratory technician today. Vitals Vitals Vital Signs Date Time Temp Pulse Resp B/P (MAP) Pulse Ox O2 Delivery O2 Flow Rate FiO2 05/08/18 10:48 68 162/89 05/08/18 09:00 20 98 Nasal Cannula 2.0 05/08/18 07:00 98.5 98.5 Physical Exam General: Alert, Oriented X3, Cooperative, No acute distress Heart: Regular rate, Normal S1, Normal S2, Other (2/6 systolic murmur ) Lungs: Clear Abdomen: Soft, No tenderness Extremities: No clubbing, No cyanosis, No edema, Normal pulses Skin: No rashes, No breakdown, No significant lesion Labs LABS Laboratory Tests Test 05/07/18 13:47 05/07/18 13:51 05/07/18 14:00 05/07/18 18:00 White Blood Count 11.2 x10^3/uL (4.0-11.0) Red Blood Count 5.88 x10^6/uL (4.30-5.70) Hemoglobin 17.7 g/dL (13.0-17.5) Hematocrit 53.4 % (39.0-53.0) Mean Corpuscular Volume 91 fL (79-100) Mean Corpuscular Hemoglobin 30 pg (25-35) Mean Corpuscular Hemoglobin Concent 33 g/dL (31-37) Red Cell Distribution Width 13.7 % (11.5-14.5) Platelet Count 206 x10^3/uL (140-400) Neutrophils (%) (Auto) 54 % (31-73) Lymphocytes (%) (Auto) 35 % (24-48) Monocytes (%) (Auto) 6 % (0-9) Eosinophils (%) (Auto) 4 % (0-3) Basophils (%) (Auto) 1 % (0-3) Neutrophils # (Auto) 6.1 x10^3uL (1.8-7.7) Lymphocytes # (Auto) 3.9 x10^3/uL (1.0-4.8) Monocytes # (Auto) 0.6 x10^3/uL (0.0-1.1) Eosinophils # (Auto) 0.4 x10^3/uL (0.0-0.7) Basophils # (Auto) 0.1 x10^3/uL (0.0-0.2) Prothrombin Time 13.6 SEC (11.7-14.0) Prothromb Time International Ratio 1.1 (0.8-1.1) Activated Partial Thromboplast Time 24 SEC (24-38) Sodium Level 136 mmol/L (136-145) Potassium Level 4.0 mmol/L (3.5-5.1) Chloride Level 96 mmol/L (98-107) Carbon Dioxide Level 30 mmol/L (21-32) Anion Gap 10 (6-14) Blood Urea Nitrogen 16 mg/dL (8-26) Creatinine 1.4 mg/dL (0.7-1.3) Estimated GFR (Cockcroft-Gault) 49.8 BUN/Creatinine Ratio 11 (6-20) Glucose Level 255 mg/dL (70-99) Lactic Acid Level 2.9 mmol/L (0.4-2.0) 1.3 mmol/L (0.4-2.0) Calcium Level 9.0 mg/dL (8.5-10.1) Total Bilirubin 1.2 mg/dL (0.2-1.0) Aspartate Amino Transf (AST/SGOT) 17 U/L (15-37) Alanine Aminotransferase (ALT/SGPT) 20 U/L (16-63) Alkaline Phosphatase 84 U/L (46-116) Troponin I Quantitative 0.031 ng/mL (0.000-0.055) 0.140 ng/mL (0.000-0.055) KC-Qix-L-Type Natriuretic Peptide 1003 pg/mL (0-124) Total Protein 8.1 g/dL (6.4-8.2) Albumin 4.3 g/dL (3.4-5.0) Albumin/Globulin Ratio 1.1 (1.0-1.7) Procalcitonin < 0.10 ng/mL (0.00-0.10) Bedside Troponin I 0.01 ng/ml (<0.08) O2 Saturation 99 % (92-99) Arterial Blood pH 7.24 (7.35-7.45) Arterial Blood pCO2 at Patient Temp 58 mmHg (35-46) Arterial Blood pO2 at Patient Temp 201 mmHg (65-108) Arterial Blood HCO3 24 mmol/L (21-28) Arterial Blood Base Excess -4 mmol/L (-3-3) FiO2 60 Test 05/08/18 04:25 White Blood Count 8.4 x10^3/uL (4.0-11.0) Red Blood Count 5.24 x10^6/uL (4.30-5.70) Hemoglobin 15.6 g/dL (13.0-17.5) Hematocrit 46.9 % (39.0-53.0) Mean Corpuscular Volume 89 fL (79-100) Mean Corpuscular Hemoglobin 30 pg (25-35) Mean Corpuscular Hemoglobin Concent 33 g/dL (31-37) Red Cell Distribution Width 13.6 % (11.5-14.5) Platelet Count 145 x10^3/uL (140-400) Neutrophils (%) (Auto) 64 % (31-73) Lymphocytes (%) (Auto) 26 % (24-48) Monocytes (%) (Auto) 6 % (0-9) Eosinophils (%) (Auto) 3 % (0-3) Basophils (%) (Auto) 1 % (0-3) Neutrophils # (Auto) 5.4 x10^3uL (1.8-7.7) Lymphocytes # (Auto) 2.2 x10^3/uL (1.0-4.8) Monocytes # (Auto) 0.5 x10^3/uL (0.0-1.1) Eosinophils # (Auto) 0.2 x10^3/uL (0.0-0.7) Basophils # (Auto) 0.1 x10^3/uL (0.0-0.2) Sodium Level 137 mmol/L (136-145) Potassium Level 4.2 mmol/L (3.5-5.1) Chloride Level 100 mmol/L (98-107) Carbon Dioxide Level 29 mmol/L (21-32) Anion Gap 8 (6-14) Blood Urea Nitrogen 17 mg/dL (8-26) Creatinine 1.3 mg/dL (0.7-1.3) Estimated GFR (Cockcroft-Gault) 54.3 BUN/Creatinine Ratio 13 (6-20) Glucose Level 147 mg/dL (70-99) Calcium Level 9.1 mg/dL (8.5-10.1) Total Bilirubin 1.0 mg/dL (0.2-1.0) Aspartate Amino Transf (AST/SGOT) 14 U/L (15-37) Alanine Aminotransferase (ALT/SGPT) 20 U/L (16-63) Alkaline Phosphatase 67 U/L (46-116) Troponin I Quantitative 0.730 ng/mL (0.000-0.055) Total Protein 6.8 g/dL (6.4-8.2) Albumin 3.5 g/dL (3.4-5.0) Albumin/Globulin Ratio 1.1 (1.0-1.7) Triglycerides Level 131 mg/dL (0-150) Cholesterol Level 142 mg/dL (0-200) LDL Cholesterol, Calculated 78 mg/dL (0-100) VLDL Cholesterol, Calculated 26 mg/dL (0-40) Non-HDL Cholesterol Calculated 104 mg/dL (0-129) HDL Cholesterol 38 mg/dL (40-60) Cholesterol/HDL Ratio 3.7 Thyroid Stimulating Hormone (TSH) 2.241 uIU/mL (0.358-3.74) Review of Systems Review of Systems GENERAL: no fever, no chills. CARDIAC: +systolic murmur, no chest pain, no arrhythmia. RESPIRATORY: +cough, no shortness of air, no wheezing, rhonchi, crackles. Assessment and Plan Assessmemt and Plan Assessment 1. Acute Respiratory Failure 2. Congestive Heart Failure 3. Hypertension 4. Flash Pulmonary Edema 5. Elevated Troponin Plan 1. ICU monitoring 2. ear mold laboratory technician - today (1pm) 3. continue antibiotics per pulm recommendations 4. follow labs 5. home meds 6. IV diuretics 7. GI/DVT prophylaxis 8. PT/OT 9. O2 per NC p.r.n. Comment Review of Relevant I have reviewed the following items fran (where applicable) has been applied. Labs Laboratory Tests Test 05/07/18 13:47 05/07/18 13:51 05/07/18 14:00 05/07/18 18:00 White Blood Count 11.2 x10^3/uL (4.0-11.0) Red Blood Count 5.88 x10^6/uL (4.30-5.70) Hemoglobin 17.7 g/dL (13.0-17.5) Hematocrit 53.4 % (39.0-53.0) Mean Corpuscular Volume 91 fL (79-100) Mean Corpuscular Hemoglobin 30 pg (25-35) Mean Corpuscular Hemoglobin Concent 33 g/dL (31-37) Red Cell Distribution Width 13.7 % (11.5-14.5) Platelet Count 206 x10^3/uL (140-400) Neutrophils (%) (Auto) 54 % (31-73) Lymphocytes (%) (Auto) 35 % (24-48) Monocytes (%) (Auto) 6 % (0-9) Eosinophils (%) (Auto) 4 % (0-3) Basophils (%) (Auto) 1 % (0-3) Neutrophils # (Auto) 6.1 x10^3uL (1.8-7.7) Lymphocytes # (Auto) 3.9 x10^3/uL (1.0-4.8) Monocytes # (Auto) 0.6 x10^3/uL (0.0-1.1) Eosinophils # (Auto) 0.4 x10^3/uL (0.0-0.7) Basophils # (Auto) 0.1 x10^3/uL (0.0-0.2) Prothrombin Time 13.6 SEC (11.7-14.0) Prothromb Time International Ratio 1.1 (0.8-1.1) Activated Partial Thromboplast Time 24 SEC (24-38) Sodium Level 136 mmol/L (136-145) Potassium Level 4.0 mmol/L (3.5-5.1) Chloride Level 96 mmol/L (98-107) Carbon Dioxide Level 30 mmol/L (21-32) Anion Gap 10 (6-14) Blood Urea Nitrogen 16 mg/dL (8-26) Creatinine 1.4 mg/dL (0.7-1.3) Estimated GFR (Cockcroft-Gault) 49.8 BUN/Creatinine Ratio 11 (6-20) Glucose Level 255 mg/dL (70-99) Lactic Acid Level 2.9 mmol/L (0.4-2.0) 1.3 mmol/L (0.4-2.0) Calcium Level 9.0 mg/dL (8.5-10.1) Total Bilirubin 1.2 mg/dL (0.2-1.0) Aspartate Amino Transf (AST/SGOT) 17 U/L (15-37) Alanine Aminotransferase (ALT/SGPT) 20 U/L (16-63) Alkaline Phosphatase 84 U/L (46-116) Troponin I Quantitative 0.031 ng/mL (0.000-0.055) 0.140 ng/mL (0.000-0.055) BF-Fyl-H-Type Natriuretic Peptide 1003 pg/mL (0-124) Total Protein 8.1 g/dL (6.4-8.2) Albumin 4.3 g/dL (3.4-5.0) Albumin/Globulin Ratio 1.1 (1.0-1.7) Procalcitonin < 0.10 ng/mL (0.00-0.10) Bedside Troponin I 0.01 ng/ml (<0.08) O2 Saturation 99 % (92-99) Arterial Blood pH 7.24 (7.35-7.45) Arterial Blood pCO2 at Patient Temp 58 mmHg (35-46) Arterial Blood pO2 at Patient Temp 201 mmHg (65-108) Arterial Blood HCO3 24 mmol/L (21-28) Arterial Blood Base Excess -4 mmol/L (-3-3) FiO2 60 Test 05/08/18 04:25 White Blood Count 8.4 x10^3/uL (4.0-11.0) Red Blood Count 5.24 x10^6/uL (4.30-5.70) Hemoglobin 15.6 g/dL (13.0-17.5) Hematocrit 46.9 % (39.0-53.0) Mean Corpuscular Volume 89 fL (79-100) Mean Corpuscular Hemoglobin 30 pg (25-35) Mean Corpuscular Hemoglobin Concent 33 g/dL (31-37) Red Cell Distribution Width 13.6 % (11.5-14.5) Platelet Count 145 x10^3/uL (140-400) Neutrophils (%) (Auto) 64 % (31-73) Lymphocytes (%) (Auto) 26 % (24-48) Monocytes (%) (Auto) 6 % (0-9) Eosinophils (%) (Auto) 3 % (0-3) Basophils (%) (Auto) 1 % (0-3) Neutrophils # (Auto) 5.4 x10^3uL (1.8-7.7) Lymphocytes # (Auto) 2.2 x10^3/uL (1.0-4.8) Monocytes # (Auto) 0.5 x10^3/uL (0.0-1.1) Eosinophils # (Auto) 0.2 x10^3/uL (0.0-0.7) Basophils # (Auto) 0.1 x10^3/uL (0.0-0.2) Sodium Level 137 mmol/L (136-145) Potassium Level 4.2 mmol/L (3.5-5.1) Chloride Level 100 mmol/L (98-107) Carbon Dioxide Level 29 mmol/L (21-32) Anion Gap 8 (6-14) Blood Urea Nitrogen 17 mg/dL (8-26) Creatinine 1.3 mg/dL (0.7-1.3) Estimated GFR (Cockcroft-Gault) 54.3 BUN/Creatinine Ratio 13 (6-20) Glucose Level 147 mg/dL (70-99) Calcium Level 9.1 mg/dL (8.5-10.1) Total Bilirubin 1.0 mg/dL (0.2-1.0) Aspartate Amino Transf (AST/SGOT) 14 U/L (15-37) Alanine Aminotransferase (ALT/SGPT) 20 U/L (16-63) Alkaline Phosphatase 67 U/L (46-116) Troponin I Quantitative 0.730 ng/mL (0.000-0.055) Total Protein 6.8 g/dL (6.4-8.2) Albumin 3.5 g/dL (3.4-5.0) Albumin/Globulin Ratio 1.1 (1.0-1.7) Triglycerides Level 131 mg/dL (0-150) Cholesterol Level 142 mg/dL (0-200) LDL Cholesterol, Calculated 78 mg/dL (0-100) VLDL Cholesterol, Calculated 26 mg/dL (0-40) Non-HDL Cholesterol Calculated 104 mg/dL (0-129) HDL Cholesterol 38 mg/dL (40-60) Cholesterol/HDL Ratio 3.7 Thyroid Stimulating Hormone (TSH) 2.241 uIU/mL (0.358-3.74) Laboratory Tests Test 05/07/18 13:47 05/07/18 13:51 05/07/18 14:00 05/07/18 18:00 White Blood Count 11.2 x10^3/uL (4.0-11.0) Red Blood Count 5.88 x10^6/uL (4.30-5.70) Hemoglobin 17.7 g/dL (13.0-17.5) Hematocrit 53.4 % (39.0-53.0) Mean Corpuscular Volume 91 fL (79-100) Mean Corpuscular Hemoglobin 30 pg (25-35) Mean Corpuscular Hemoglobin Concent 33 g/dL (31-37) Red Cell Distribution Width 13.7 % (11.5-14.5) Platelet Count 206 x10^3/uL (140-400) Neutrophils (%) (Auto) 54 % (31-73) Lymphocytes (%) (Auto) 35 % (24-48) Monocytes (%) (Auto) 6 % (0-9) Eosinophils (%) (Auto) 4 % (0-3) Basophils (%) (Auto) 1 % (0-3) Neutrophils # (Auto) 6.1 x10^3uL (1.8-7.7) Lymphocytes # (Auto) 3.9 x10^3/uL (1.0-4.8) Monocytes # (Auto) 0.6 x10^3/uL (0.0-1.1) Eosinophils # (Auto) 0.4 x10^3/uL (0.0-0.7) Basophils # (Auto) 0.1 x10^3/uL (0.0-0.2) Prothrombin Time 13.6 SEC (11.7-14.0) Prothromb Time International Ratio 1.1 (0.8-1.1) Activated Partial Thromboplast Time 24 SEC (24-38) Sodium Level 136 mmol/L (136-145) Potassium Level 4.0 mmol/L (3.5-5.1) Chloride Level 96 mmol/L (98-107) Carbon Dioxide Level 30 mmol/L (21-32) Anion Gap 10 (6-14) Blood Urea Nitrogen 16 mg/dL (8-26) Creatinine 1.4 mg/dL (0.7-1.3) Estimated GFR (Cockcroft-Gault) 49.8 BUN/Creatinine Ratio 11 (6-20) Glucose Level 255 mg/dL (70-99) Lactic Acid Level 2.9 mmol/L (0.4-2.0) 1.3 mmol/L (0.4-2.0) Calcium Level 9.0 mg/dL (8.5-10.1) Total Bilirubin 1.2 mg/dL (0.2-1.0) Aspartate Amino Transf (AST/SGOT) 17 U/L (15-37) Alanine Aminotransferase (ALT/SGPT) 20 U/L (16-63) Alkaline Phosphatase 84 U/L (46-116) Troponin I Quantitative 0.031 ng/mL (0.000-0.055) 0.140 ng/mL (0.000-0.055) MW-Dhj-A-Type Natriuretic Peptide 1003 pg/mL (0-124) Total Protein 8.1 g/dL (6.4-8.2) Albumin 4.3 g/dL (3.4-5.0) Albumin/Globulin Ratio 1.1 (1.0-1.7) Procalcitonin < 0.10 ng/mL (0.00-0.10) Bedside Troponin I 0.01 ng/ml (<0.08) O2 Saturation 99 % (92-99) Arterial Blood pH 7.24 (7.35-7.45) Arterial Blood pCO2 at Patient Temp 58 mmHg (35-46) Arterial Blood pO2 at Patient Temp 201 mmHg (65-108) Arterial Blood HCO3 24 mmol/L (21-28) Arterial Blood Base Excess -4 mmol/L (-3-3) FiO2 60 Test 05/08/18 04:25 White Blood Count 8.4 x10^3/uL (4.0-11.0) Red Blood Count 5.24 x10^6/uL (4.30-5.70) Hemoglobin 15.6 g/dL (13.0-17.5) Hematocrit 46.9 % (39.0-53.0) Mean Corpuscular Volume 89 fL (79-100) Mean Corpuscular Hemoglobin 30 pg (25-35) Mean Corpuscular Hemoglobin Concent 33 g/dL (31-37) Red Cell Distribution Width 13.6 % (11.5-14.5) Platelet Count 145 x10^3/uL (140-400) Neutrophils (%) (Auto) 64 % (31-73) Lymphocytes (%) (Auto) 26 % (24-48) Monocytes (%) (Auto) 6 % (0-9) Eosinophils (%) (Auto) 3 % (0-3) Basophils (%) (Auto) 1 % (0-3) Neutrophils # (Auto) 5.4 x10^3uL (1.8-7.7) Lymphocytes # (Auto) 2.2 x10^3/uL (1.0-4.8) Monocytes # (Auto) 0.5 x10^3/uL (0.0-1.1) Eosinophils # (Auto) 0.2 x10^3/uL (0.0-0.7) Basophils # (Auto) 0.1 x10^3/uL (0.0-0.2) Sodium Level 137 mmol/L (136-145) Potassium Level 4.2 mmol/L (3.5-5.1) Chloride Level 100 mmol/L (98-107) Carbon Dioxide Level 29 mmol/L (21-32) Anion Gap 8 (6-14) Blood Urea Nitrogen 17 mg/dL (8-26) Creatinine 1.3 mg/dL (0.7-1.3) Estimated GFR (Cockcroft-Gault) 54.3 BUN/Creatinine Ratio 13 (6-20) Glucose Level 147 mg/dL (70-99) Calcium Level 9.1 mg/dL (8.5-10.1) Total Bilirubin 1.0 mg/dL (0.2-1.0) Aspartate Amino Transf (AST/SGOT) 14 U/L (15-37) Alanine Aminotransferase (ALT/SGPT) 20 U/L (16-63) Alkaline Phosphatase 67 U/L (46-116) Troponin I Quantitative 0.730 ng/mL (0.000-0.055) Total Protein 6.8 g/dL (6.4-8.2) Albumin 3.5 g/dL (3.4-5.0) Albumin/Globulin Ratio 1.1 (1.0-1.7) Triglycerides Level 131 mg/dL (0-150) Cholesterol Level 142 mg/dL (0-200) LDL Cholesterol, Calculated 78 mg/dL (0-100) VLDL Cholesterol, Calculated 26 mg/dL (0-40) Non-HDL Cholesterol Calculated 104 mg/dL (0-129) HDL Cholesterol 38 mg/dL (40-60) Cholesterol/HDL Ratio 3.7 Thyroid Stimulating Hormone (TSH) 2.241 uIU/mL (0.358-3.74) Medications Current Medications Nitroglycerin (Nitrostat) 0.4 mg PRN Q5MIN PRN SL CHEST PAIN Last administered on 05/07/18at 14:06; Start 05/07/18 at 14:00 Nitroglycerin (Nitrostat) 0.4 mg STK-MED ONCE SL ; Start 05/07/18 at 13:55; Stop 05/07/18 at 13:56; Status DC Aspirin (Children'S Aspirin) 324 mg 1X ONCE PO Last administered on 05/07/18at 15:26; Start 05/07/18 at 14:45; Stop 05/07/18 at 14:46; Status DC Piperacillin Sod/ Tazobactam Sod (Zosyn Per Pharmacy) 1 each PRN DAILY PRN MC SEE COMMENTS; Start 05/07/18 at 16:30; Stop 05/08/18 at 09:34; Status DC Piperacillin Sod/ Tazobactam Sod 3.375 gm/Sodium Chloride 50 ml @ 100 mls/hr Q6HRS IV Last administered on 05/07/18at 16:54; Start 05/07/18 at 17:00; Stop at 18:13; Status DC Ceftriaxone Sodium (Rocephin) 1 gm Q24H IVP Last administered on 05/07/18at 19: 47; Start 05/07/18 at 19:00 Doxycycline Hyclate (Vibra-Tab) 100 mg BID PO Last administered on 05/08/18at 09 :47; Start 05/07/18 at 21:00 Lactobacillus Rhamnosus (Culturelle) 1 cap BID PO ; Start 05/08/18 at 21:00 Aspirin (Ecotrin) 81 mg DAILYWBKFT PO Last administered on 05/08/18at 10:47; Start 05/08/18 at 10:00 Carvedilol (Coreg) 6.25 mg BIDWMEALS PO Last administered on 05/08/18at 10:48; Start 05/08/18 at 10:00 Iodixanol (Visipaque 320) 100 ml STK-MED ONCE .ROUTE ; Start 05/08/18 at 12:39; Stop 05/08/18 at 12:40; Status DC Lidocaine HCl (Lidocaine 1% 20ml Vial) 20 ml STK-MED ONCE .ROUTE ; Start at 12:39; Stop 05/08/18 at 12:40; Status DC Heparin Sodium/ Sodium Chloride 1,000 ml @ As Directed STK-MED ONCE .ROUTE ; Start 05/08/18 at 12:40; Stop 05/08/18 at 12:41; Status DC Fentanyl Citrate (Fentanyl 2ml Vial) 100 mcg STK-MED ONCE .ROUTE ; Start at 13:00; Stop 05/08/18 at 13:01; Status DC Midazolam HCl (Versed) 2 mg STK-MED ONCE .ROUTE ; Start 05/08/18 at 13:00; Stop 05/08/18 at 13:01; Status DC Active Scripts Active Reported Aspirin Ec (Aspirin) 81 Mg Tablet.dr 1 Tab PO DAILY Requip (Ropinirole Hcl) 1 Mg Tablet 2 Tab PO QHS take 1-3 hours before bedtime Simvastatin 40 Mg Tablet 40 Mg PO HS Sildenafil (Sildenafil Citrate) 20 Mg Tablet 100 Mg PO PRN PRN Omeprazole 40 Mg Capsule.dr 40 Mg PO DAILY Metformin Hcl 1,000 Mg Tablet 1,000 Mg PO BIDWMEALS Losartan Potassium 50 Mg Tablet 12.5 Mg PO DAILY Glipizide 10 Mg Tablet 1 Tab PO BID Fish Oil 1,000 Mg Capsule ([place]-3 Fatty Acids/Fish Oil) 1 Each Capsule 2 Each PO DAILY Vitamin D3 (Cholecalciferol (Vitamin D3)) 1,000 Unit Tablet 3,000 Unit PO DAILY Carvedilol (Carvedilol) 12.5 Mg Tablet 12.5 Mg PO BIDWMEALS Vitals/I & O Vital Sign - Last 24 Hours 05/07/18 05/07/18 05/07/18 05/07/18 13:38 13:51 13:51 13:56 Temp 96.9 96.9 Pulse 127 120 114 Resp 36 33 36 B/P (MAP) 212/107 (142) 211/105 (140) 178/100 (126) Pulse Ox 70 97 99 98 O2 Delivery Room Air BiPAP/CPAP BiPAP/CPAP 05/07/18 05/07/18 05/07/18 05/07/18 13:58 14:00 14:06 14:13 Pulse 112 112 98 102 Resp 36 28 B/P (MAP) 194/101 172/100 (124) 172/100 165/89 (114) Pulse Ox 100 99 O2 Delivery BiPAP/CPAP 05/07/18 05/07/18 05/07/18 05/07/18 14:15 14:30 14:45 15:00 Pulse 100 96 92 90 Resp 28 28 26 20 B/P (MAP) 150/89 (109) 121/74 (90) 133/79 (97) 91/53 (66) Pulse Ox 100 100 96 95 O2 Delivery BiPAP/CPAP BiPAP/CPAP 05/07/18 05/07/18 05/07/18 05/07/18 15:15 15:30 15:45 16:00 Pulse 88 86 76 72 Resp 20 22 19 17 B/P (MAP) 91/57 (68) 95/65 (75) 109/64 (79) 118/68 (85) Pulse Ox 94 93 95 98 O2 Delivery BiPAP/CPAP BiPAP/CPAP BiPAP/CPAP BiPAP/CPAP 05/07/18 05/07/18 05/07/18 05/07/18 16:15 16:30 16:45 17:15 Temp 98.7 98.7 Pulse 80 72 68 92 Resp 20 20 20 30 B/P (MAP) 120/71 (87) 114/68 (83) 116/72 (87) 140/78 (98) Pulse Ox 98 99 99 90 O2 Delivery BiPAP/CPAP BiPAP/CPAP Nasal Cannula O2 Flow Rate 2.0 05/07/18 05/07/18 05/07/18 05/07/18 17:30 18:00 19:00 20:00 Pulse 75 75 Resp 22 16 B/P (MAP) 140/78 (98) 122/62 (82) Pulse Ox 98 97 O2 Delivery Nasal Cannula Nasal Cannula Nasal Cannula Nasal Cannula O2 Flow Rate 2.0 2.0 2.0 2.0 05/07/18 05/07/18 05/07/18 05/07/18 20:00 20:00 21:00 22:00 Temp 97.8 97.8 Pulse 74 71 80 Resp 18 18 23 B/P (MAP) 129/70 (89) 123/68 (86) 122/71 (88) Pulse Ox 98 99 99 O2 Delivery Nasal Cannula Nasal Cannula Nasal Cannula O2 Flow Rate 2.0 2.0 2.0 2.0 05/07/18 05/08/18 05/08/18 05/08/18 23:00 00:00 00:00 00:01 Temp 97.7 97.7 Pulse 76 79 Resp 18 16 B/P (MAP) 125/71 (89) 178/85 (116) Pulse Ox 99 99 O2 Delivery Nasal Cannula Nasal Cannula Nasal Cannula O2 Flow Rate 2.0 2.0 2.0 2.0 05/08/18 05/08/18 05/08/18 05/08/18 01:00 02:00 03:00 04:00 Pulse 74 76 71 Resp 20 11 20 B/P (MAP) 110/55 (73) 118/67 (84) 133/75 (94) Pulse Ox 99 98 97 O2 Delivery Nasal Cannula Nasal Cannula Nasal Cannula Nasal Cannula O2 Flow Rate 2.0 2.0 2.0 2.0 05/08/18 05/08/18 05/08/18 05/08/18 04:00 04:10 05:00 06:00 Temp 97.5 97.5 Pulse 80 77 81 Resp 21 16 22 B/P (MAP) 140/85 (103) 144/83 (103) 134/78 (96) Pulse Ox 97 99 98 O2 Delivery Nasal Cannula Nasal Cannula Nasal Cannula O2 Flow Rate 2.0 2.0 2.0 2.0 05/08/18 05/08/18 05/08/18 05/08/18 07:00 08:00 08:00 09:00 Temp 98.5 98.5 Pulse 66 70 74 Resp 16 20 20 B/P (MAP) 124/71 (88) 115/73 (87) 140/79 (99) Pulse Ox 98 97 98 O2 Delivery Nasal Cannula Nasal Cannula Nasal Cannula Nasal Cannula O2 Flow Rate 2.0 2.0 2.0 2.0 05/08/18 10:48 Pulse 68 B/P (MAP) 162/89 Intake and Output 05/07/18 05/07/18 05/08/18 15:00 23:00 07:00 Intake Total 350 ml Output Total 600 ml 500 ml Balance -250 ml -500 ml LYLY VALENCIA III DO May 08, 2018 13:20
--- NOTE | 2018-05-08 13:26 | PDOC ---
MODERATE SEDATION ASSESSMENT RISKS/ALTERNATIVES Risks/Alternatives Risks and alternatives of this type of sedation and procedure discussed with: RISK/ALTERNATIVES: Patient H & P ON CHART H & P H & P on chart and reviewed for co-morbid conditions and appropriate labs. H&P ON CHART: Yes STATUS PREG STATUS ASSESSED: N/A MEDS/ALLERGIES REVIEWED Meds/Allergies Reviewed Medications and Allergies including time and route of recently administered narcotics and sedatives. MEDS/ALLERGIES REVIEWED: Yes ASA RATING ASA RATING: II AIRWAY ASSESSMENT Airway Assessment Airway patency, oral function limitations, presence of caps, crowns, dentures, partials, and ability to extend neck assessed. AIRWAY ASSESSMENT: Yes MALLAMPATI SCORE MALLAMPATI SCORE: II PRE-SEDATION ASSESSMENT PRE-SEDATION ASSESSMENT: Yes ALLISON DALTON MD May 08, 2018 13:26
--- NOTE | 2018-05-08 14:07 | EKG ---
[facility] [address] [place] [address] Test Date: 2018-05-07 Test Time: 13:43:26 Pat Name: JOE CHRISTIANSON Department: Room: 103 1 Gender: Ophthalmic Asst: : 1945 Requested By: SHELLEY WINSTON Order Number: [id number] Reading MD: Get Bustillos Measurements Intervals [place] Rate: P: VT: QRS: QRSD: T: QT: QTc: Interpretive Statements SINUS TACHYCARDIA INTRAVENTRICULAR CONDUCTION DELAY POSSIBLE OLD ANTERIOR INFARCT Electronically Signed On 05-15-2018 8:05:54 [employer] by Get Bustillos
[2018-05-08] MEDS ORDERED: IV NORMAL SALINE 1000ML BAG 1,000 ML IV SCH (14:12)
[2018-05-08] MEDS ORDERED: 0.9 % SODIUM CHLORIDE 10 ML DISP.SYRIN. IV PRN (14:15)
[2018-05-08] MEDS ORDERED: NITROGLYCERIN SUBLINGUAL 0.4 MG BOTTLE OF 25. SL PRN (14:15)
--- NOTE | 2018-05-08 15:35 | CARD ---
MR#: [id number] Date of Study: 05/08/2018 Ordering Physician: ALLISON LUND, Referring Physician: SALABDOR SULLIVAN Tech: Shelbie Lopez, RT (R) APPROVED REPORT Procedures Left heart catheterization Selective coronary angiogram Left ventriculogram The patient is a 72-year-old male with a history of coronary disease, a cardiomyopathy and implantabl e defibrillator. Patient had episodes of acute onset of shortness of breath which was treated success fully with diuresis and medications. Due to his acute change in status we review possible options wit h the patient. Once he was stabilized we recommended cardiac catheterization the setting of his acute change in status, his decreased LV function and his history of coronary disease with stents. Risks a nd benefits were discussed with the patient. He agreed to proceed. After informed consent was obtained the patient was brought to the heart catheterization lab. The are a of the right femoral artery was prepared the usual manner with Betadine, sterile draping and local anesthetic. An 18-gauge needle was used to enter the right femoral artery, a wire placed the 6 Bulgarian sheath placed over the wire. A 6 Bulgarian JL4 catheter was advanced to the aortic root and used to eng age the left coronary system. A 6 Bulgarian Theodore right diagnostic catheter and then a JR4 diagnostic catheter were advanced to the ascending aorta and used to engage the right coronary artery. A pigtai l catheter was advanced into ascending aorta and then the left ventricle. Pressures were obtained. A 30� NAGEL left ventriculogram was performed. Pullback pressures were measured. The catheter was removed and the patient. Injection the sheath showed normal placement. The sheath was removed and sealed wit h an Angio-Seal product. The patient was then moved to the holding area. Findings. Hemodynamics. LV pressure 120/8, 24 Aortic root pressure 118/54. Coronaries. Left main. The left main had a distal 30-35% lesion. Left anterior descending. The LAD had a proximal 50% lesion. It was then followed by a patent stent. In its midportion there was a 40-45% lesion. A good size diagonal branch was a patent stent. Ramus intermediate. The ramus intermediate had a proximal 50% lesion. Left circumflex. Left circumflex was nondominant. A relatively small obtuse marginal branch had an os tial 60% lesion. There was distal small vessel disease in the left circumflex vessel itself. Right coronary artery. The right coronary was a large dominant vessel. It had a mid 20% lesion and a distal 20% lesion. Left ventriculogram. The left ventricle showed severely decreased LV function. There was distal septal, apical and distal inferior severe hypokinesis. There is no significant kadi l regurgitation. Ejection fraction was 25-30%. <Conclusion> Diffuse moderate coronary disease in the left circumflex and left anterior descending vessels. Patent stents in the LAD and diagonal branch. Dominant right coronary artery with mild disease. Severely decreased ejection fraction at 25-30%. Signed by : Allison Lund MD Electronically Approved : 05/08/2018 15:35:05
--- NOTE | 2018-05-08 18:25 | NUR ---
Patient transferred to room 244 with all personal belongings.
[2018-05-08] MEDS: cefTRIAXone IV Push 1 GM VIAL. IVP SCH (21:18)
[2018-05-08] MEDS: LACTOBACILLUS RHAMNOSUS GG 1 CAPSULE. PO SCH (21:18)
[2018-05-09 02:52] VITALS: BP 125/63
[2018-05-09 04:55] LABS: BASO # 0.1 x10^3/uL (0.0-0.2); BASO % 2 % (0-3); EOS # 0.3 x10^3/uL (0.0-0.7); EOS % 4 % (0-3); HEMATOCRIT 43.8 % (39.0-53.0); HEMOGLOBIN 14.8 g/dL (13.0-17.5); LYMPH # 1.3 x10^3/uL (1.0-4.8); LYMPH % 19 % (24-48); MEAN CORPUSCULAR HEMOGLOBIN 30 pg (25-35); MEAN CORPUSCULAR HGB CONC 34 g/dL (31-37); MEAN CORPUSCULAR VOLUME 89 fL (79-100); MONO # 0.5 x10^3/uL (0.0-1.1); MONO % 7 % (0-9); NEUT # 4.9 x10^3uL (1.8-7.7); NEUT % 69 % (31-73); PLATELET COUNT 129 x10^3/uL (140-400); RED BLOOD COUNT 4.93 x10^6/uL (4.30-5.70); RED CELL DISTRIBUTION WIDTH 13.4 % (11.5-14.5); WHITE BLOOD COUNT 7.1 x10^3/uL (4.0-11.0)
[2018-05-09 05:22] LABS: ALBUMIN 3.3 g/dL (3.4-5.0); ALBUMIN/GLOBULIN RATIO 1.1 (1.0-1.7); CALCIUM 8.5 mg/dL (8.5-10.1); CREATININE 1.1 mg/dL (0.7-1.3); GFR 65.8; TOTAL BILIRUBIN 0.8 mg/dL (0.2-1.0); TOTAL PROTEIN 6.3 g/dL (6.4-8.2)
[2018-05-09 07:00] VITALS: BP 173/71
[2018-05-09] MEDS: ASPIRIN ENTERIC COATED 81 MG TABLET.DR. PO SCH (08:34)
[2018-05-09] MEDS: DOXYCYCLINE HYCLATE 100 MG TABLET PO SCH (08:34)
[2018-05-09] MEDS: LACTOBACILLUS RHAMNOSUS GG 1 CAPSULE. PO SCH (08:34)
[2018-05-09] MEDS: CARVEDILOL 6.25 MG TABLET. PO SCH (08:36)
--- NOTE | 2018-05-09 09:19 | PDOC ---
PULMONARY PROGRESS NOTES Subjective PT SEEN AFTER CATH SPOKE WITH DR SANTOS Vitals Vital Signs Date Time Temp Pulse Resp B/P (MAP) Pulse Ox O2 Delivery O2 Flow Rate FiO2 05/09/18 08:36 80 151/80 05/09/18 07:00 97.9 17 96 Room Air 97.9 05/08/18 17:00 2.0 ROS: No Nausea, No Chest Pain, No Abdominal Pain, No Increase Cough General: Alert Lungs: Crackles Cardiovascular: S1, S2 Abdomen: Soft Neuro Exam: Alert Extremities: No Edema Skin: Warm Labs Laboratory Tests Test 05/07/18 13:47 05/07/18 13:51 05/07/18 14:00 05/07/18 17:15 White Blood Count 11.2 x10^3/uL (4.0-11.0) Red Blood Count 5.88 x10^6/uL (4.30-5.70) Hemoglobin 17.7 g/dL (13.0-17.5) Hematocrit 53.4 % (39.0-53.0) Mean Corpuscular Volume 91 fL (79-100) Mean Corpuscular Hemoglobin 30 pg (25-35) Mean Corpuscular Hemoglobin Concent 33 g/dL (31-37) Red Cell Distribution Width 13.7 % (11.5-14.5) Platelet Count 206 x10^3/uL (140-400) Neutrophils (%) (Auto) 54 % (31-73) Lymphocytes (%) (Auto) 35 % (24-48) Monocytes (%) (Auto) 6 % (0-9) Eosinophils (%) (Auto) 4 % (0-3) Basophils (%) (Auto) 1 % (0-3) Neutrophils # (Auto) 6.1 x10^3uL (1.8-7.7) Lymphocytes # (Auto) 3.9 x10^3/uL (1.0-4.8) Monocytes # (Auto) 0.6 x10^3/uL (0.0-1.1) Eosinophils # (Auto) 0.4 x10^3/uL (0.0-0.7) Basophils # (Auto) 0.1 x10^3/uL (0.0-0.2) Prothrombin Time 13.6 SEC (11.7-14.0) Prothromb Time International Ratio 1.1 (0.8-1.1) Activated Partial Thromboplast Time 24 SEC (24-38) Sodium Level 136 mmol/L (136-145) Potassium Level 4.0 mmol/L (3.5-5.1) Chloride Level 96 mmol/L (98-107) Carbon Dioxide Level 30 mmol/L (21-32) Anion Gap 10 (6-14) Blood Urea Nitrogen 16 mg/dL (8-26) Creatinine 1.4 mg/dL (0.7-1.3) Estimated GFR (Cockcroft-Gault) 49.8 BUN/Creatinine Ratio 11 (6-20) Glucose Level 255 mg/dL (70-99) Lactic Acid Level 2.9 mmol/L (0.4-2.0) Calcium Level 9.0 mg/dL (8.5-10.1) Total Bilirubin 1.2 mg/dL (0.2-1.0) Aspartate Amino Transf (AST/SGOT) 17 U/L (15-37) Alanine Aminotransferase (ALT/SGPT) 20 U/L (16-63) Alkaline Phosphatase 84 U/L (46-116) Troponin I Quantitative 0.031 ng/mL (0.000-0.055) RD-Fag-J-Type Natriuretic Peptide 1003 pg/mL (0-124) Total Protein 8.1 g/dL (6.4-8.2) Albumin 4.3 g/dL (3.4-5.0) Albumin/Globulin Ratio 1.1 (1.0-1.7) Procalcitonin < 0.10 ng/mL (0.00-0.10) Bedside Troponin I 0.01 ng/ml (<0.08) O2 Saturation 99 % (92-99) Arterial Blood pH 7.24 (7.35-7.45) Arterial Blood pCO2 at Patient Temp 58 mmHg (35-46) Arterial Blood pO2 at Patient Temp 201 mmHg (65-108) Arterial Blood HCO3 24 mmol/L (21-28) Arterial Blood Base Excess -4 mmol/L (-3-3) FiO2 60 Nasal Screen MRSA (PCR) Negative (Negative) Test 05/07/18 18:00 05/08/18 04:25 05/09/18 04:15 Lactic Acid Level 1.3 mmol/L (0.4-2.0) Troponin I Quantitative 0.140 ng/mL (0.000-0.055) 0.730 ng/mL (0.000-0.055) White Blood Count 8.4 x10^3/uL (4.0-11.0) 7.1 x10^3/uL (4.0-11.0) Red Blood Count 5.24 x10^6/uL (4.30-5.70) 4.93 x10^6/uL (4.30-5.70) Hemoglobin 15.6 g/dL (13.0-17.5) 14.8 g/dL (13.0-17.5) Hematocrit 46.9 % (39.0-53.0) 43.8 % (39.0-53.0) Mean Corpuscular Volume 89 fL (79-100) 89 fL (79-100) Mean Corpuscular Hemoglobin 30 pg (25-35) 30 pg (25-35) Mean Corpuscular Hemoglobin Concent 33 g/dL (31-37) 34 g/dL (31-37) Red Cell Distribution Width 13.6 % (11.5-14.5) 13.4 % (11.5-14.5) Platelet Count 145 x10^3/uL (140-400) 129 x10^3/uL (140-400) Neutrophils (%) (Auto) 64 % (31-73) 69 % (31-73) Lymphocytes (%) (Auto) 26 % (24-48) 19 % (24-48) Monocytes (%) (Auto) 6 % (0-9) 7 % (0-9) Eosinophils (%) (Auto) 3 % (0-3) 4 % (0-3) Basophils (%) (Auto) 1 % (0-3) 2 % (0-3) Neutrophils # (Auto) 5.4 x10^3uL (1.8-7.7) 4.9 x10^3uL (1.8-7.7) Lymphocytes # (Auto) 2.2 x10^3/uL (1.0-4.8) 1.3 x10^3/uL (1.0-4.8) Monocytes # (Auto) 0.5 x10^3/uL (0.0-1.1) 0.5 x10^3/uL (0.0-1.1) Eosinophils # (Auto) 0.2 x10^3/uL (0.0-0.7) 0.3 x10^3/uL (0.0-0.7) Basophils # (Auto) 0.1 x10^3/uL (0.0-0.2) 0.1 x10^3/uL (0.0-0.2) Sodium Level 137 mmol/L (136-145) 138 mmol/L (136-145) Potassium Level 4.2 mmol/L (3.5-5.1) 4.0 mmol/L (3.5-5.1) Chloride Level 100 mmol/L (98-107) 101 mmol/L (98-107) Carbon Dioxide Level 29 mmol/L (21-32) 28 mmol/L (21-32) Anion Gap 8 (6-14) 9 (6-14) Blood Urea Nitrogen 17 mg/dL (8-26) 19 mg/dL (8-26) Creatinine 1.3 mg/dL (0.7-1.3) 1.1 mg/dL (0.7-1.3) Estimated GFR (Cockcroft-Gault) 54.3 65.8 BUN/Creatinine Ratio 13 (6-20) 17 (6-20) Glucose Level 147 mg/dL (70-99) 126 mg/dL (70-99) Calcium Level 9.1 mg/dL (8.5-10.1) 8.5 mg/dL (8.5-10.1) Total Bilirubin 1.0 mg/dL (0.2-1.0) 0.8 mg/dL (0.2-1.0) Aspartate Amino Transf (AST/SGOT) 14 U/L (15-37) 16 U/L (15-37) Alanine Aminotransferase (ALT/SGPT) 20 U/L (16-63) 22 U/L (16-63) Alkaline Phosphatase 67 U/L (46-116) 62 U/L (46-116) Total Protein 6.8 g/dL (6.4-8.2) 6.3 g/dL (6.4-8.2) Albumin 3.5 g/dL (3.4-5.0) 3.3 g/dL (3.4-5.0) Albumin/Globulin Ratio 1.1 (1.0-1.7) 1.1 (1.0-1.7) Triglycerides Level 131 mg/dL (0-150) Cholesterol Level 142 mg/dL (0-200) LDL Cholesterol, Calculated 78 mg/dL (0-100) VLDL Cholesterol, Calculated 26 mg/dL (0-40) Non-HDL Cholesterol Calculated 104 mg/dL (0-129) HDL Cholesterol 38 mg/dL (40-60) Cholesterol/HDL Ratio 3.7 Thyroid Stimulating Hormone (TSH) 2.241 uIU/mL (0.358-3.74) Laboratory Tests Test 05/09/18 04:15 White Blood Count 7.1 x10^3/uL (4.0-11.0) Red Blood Count 4.93 x10^6/uL (4.30-5.70) Hemoglobin 14.8 g/dL (13.0-17.5) Hematocrit 43.8 % (39.0-53.0) Mean Corpuscular Volume 89 fL (79-100) Mean Corpuscular Hemoglobin 30 pg (25-35) Mean Corpuscular Hemoglobin Concent 34 g/dL (31-37) Red Cell Distribution Width 13.4 % (11.5-14.5) Platelet Count 129 x10^3/uL (140-400) Neutrophils (%) (Auto) 69 % (31-73) Lymphocytes (%) (Auto) 19 % (24-48) Monocytes (%) (Auto) 7 % (0-9) Eosinophils (%) (Auto) 4 % (0-3) Basophils (%) (Auto) 2 % (0-3) Neutrophils # (Auto) 4.9 x10^3uL (1.8-7.7) Lymphocytes # (Auto) 1.3 x10^3/uL (1.0-4.8) Monocytes # (Auto) 0.5 x10^3/uL (0.0-1.1) Eosinophils # (Auto) 0.3 x10^3/uL (0.0-0.7) Basophils # (Auto) 0.1 x10^3/uL (0.0-0.2) Sodium Level 138 mmol/L (136-145) Potassium Level 4.0 mmol/L (3.5-5.1) Chloride Level 101 mmol/L (98-107) Carbon Dioxide Level 28 mmol/L (21-32) Anion Gap 9 (6-14) Blood Urea Nitrogen 19 mg/dL (8-26) Creatinine 1.1 mg/dL (0.7-1.3) Estimated GFR (Cockcroft-Gault) 65.8 BUN/Creatinine Ratio 17 (6-20) Glucose Level 126 mg/dL (70-99) Calcium Level 8.5 mg/dL (8.5-10.1) Total Bilirubin 0.8 mg/dL (0.2-1.0) Aspartate Amino Transf (AST/SGOT) 16 U/L (15-37) Alanine Aminotransferase (ALT/SGPT) 22 U/L (16-63) Alkaline Phosphatase 62 U/L (46-116) Total Protein 6.3 g/dL (6.4-8.2) Albumin 3.3 g/dL (3.4-5.0) Albumin/Globulin Ratio 1.1 (1.0-1.7) Medications Active Scripts Medications Dose Route/Sig Max Daily Dose Days Date Category Dose Instructions Aspirin Ec (Aspirin) 81 Mg Tablet.dr 1 Tab PO DAILY 05/08/18 Reported Requip (Ropinirole Hcl) 1 Mg Tablet 2 Tab PO QHS 05/08/18 Reported take 1-3 hours before bedtime Simvastatin 40 Mg Tablet 40 Mg PO HS 05/08/18 Reported Sildenafil (Sildenafil Citrate) 20 Mg Tablet 100 Mg PO PRN PRN 05/08/18 Reported Omeprazole 40 Mg Capsule.dr 40 Mg PO DAILY 05/08/18 Reported Metformin Hcl 1,000 Mg Tablet 1,000 Mg PO BIDWMEALS 05/08/18 Reported Losartan Potassium 50 Mg Tablet 12.5 Mg PO DAILY 05/08/18 Reported Glipizide 10 Mg Tablet 1 Tab PO BID 05/08/18 Reported Fish Oil 1,000 Mg Capsule (Walling-3 Fatty Acids/Fish Oil) 1 Each Capsule 2 Each PO DAILY 05/08/18 Reported Vitamin D3 (Cholecalciferol (Vitamin D3)) 1,000 Unit Tablet 3,000 Unit PO DAILY 05/08/18 Reported Carvedilol (Carvedilol) 12.5 Mg Tablet 12.5 Mg PO BIDWMEALS 05/08/18 Reported Impression . IMPRESSION: 1. Acute hypoxemic respiratory failure. 2. Acute suspect diastolic heart failure on top of systolic heart failure. 3. Acute exacerbation of chronic obstructive pulmonary disease. 4. Coronary artery disease with previous percutaneous coronary intervention. 5. Cardiomyopathy, ejection fraction of 30% 6. Tobacco dependent. 7. Hyperlipidemia. 8. Hypertension. 9. DEMAND ISCHEMIA Plan . CATH REPORT NOTED WILL CONTINUE THE SAME PROCALCITONIN IS LOW DIURESE PRN BIPAP MAYTE KYLE MD May 09, 2018 09:19
--- NOTE | 2018-05-09 10:14 | PDOC ---
PROGRESS NOTES Chief Complaint Chief Complaint Acute Respiratory Failure Congestive Heart Failure Hypertension Flash Pulmonary Edema Elevated Troponin History of Present Illness History of Present Illness Patient was seen and examined sitting in his chair. at bedside. Patient states he is feeling well and would like to go home. Cardiac cath performed yesterday and showed moderate CAD in left circumflex and left anterior descending arteries, EF 25-30%. Cardiology following. No other complaints at this time. Discussed with and RN. Vitals Vitals Vital Signs Date Time Temp Pulse Resp B/P (MAP) Pulse Ox O2 Delivery O2 Flow Rate FiO2 05/09/18 08:36 80 151/80 05/09/18 07:00 97.9 17 96 Room Air 97.9 05/08/18 17:00 2.0 Physical Exam General: Alert, Oriented X3, Cooperative, No acute distress Heart: Regular rate, Normal S1, Normal S2, Other (2/6 systolic murmur ) Lungs: Clear, Other (no rhonchi) Abdomen: Soft, No tenderness Extremities: No clubbing, No cyanosis Skin: No rashes, No breakdown, No significant lesion Labs LABS Laboratory Tests Test 05/09/18 04:15 White Blood Count 7.1 x10^3/uL (4.0-11.0) Red Blood Count 4.93 x10^6/uL (4.30-5.70) Hemoglobin 14.8 g/dL (13.0-17.5) Hematocrit 43.8 % (39.0-53.0) Mean Corpuscular Volume 89 fL (79-100) Mean Corpuscular Hemoglobin 30 pg (25-35) Mean Corpuscular Hemoglobin Concent 34 g/dL (31-37) Red Cell Distribution Width 13.4 % (11.5-14.5) Platelet Count 129 x10^3/uL (140-400) Neutrophils (%) (Auto) 69 % (31-73) Lymphocytes (%) (Auto) 19 % (24-48) Monocytes (%) (Auto) 7 % (0-9) Eosinophils (%) (Auto) 4 % (0-3) Basophils (%) (Auto) 2 % (0-3) Neutrophils # (Auto) 4.9 x10^3uL (1.8-7.7) Lymphocytes # (Auto) 1.3 x10^3/uL (1.0-4.8) Monocytes # (Auto) 0.5 x10^3/uL (0.0-1.1) Eosinophils # (Auto) 0.3 x10^3/uL (0.0-0.7) Basophils # (Auto) 0.1 x10^3/uL (0.0-0.2) Sodium Level 138 mmol/L (136-145) Potassium Level 4.0 mmol/L (3.5-5.1) Chloride Level 101 mmol/L (98-107) Carbon Dioxide Level 28 mmol/L (21-32) Anion Gap 9 (6-14) Blood Urea Nitrogen 19 mg/dL (8-26) Creatinine 1.1 mg/dL (0.7-1.3) Estimated GFR (Cockcroft-Gault) 65.8 BUN/Creatinine Ratio 17 (6-20) Glucose Level 126 mg/dL (70-99) Calcium Level 8.5 mg/dL (8.5-10.1) Total Bilirubin 0.8 mg/dL (0.2-1.0) Aspartate Amino Transf (AST/SGOT) 16 U/L (15-37) Alanine Aminotransferase (ALT/SGPT) 22 U/L (16-63) Alkaline Phosphatase 62 U/L (46-116) Total Protein 6.3 g/dL (6.4-8.2) Albumin 3.3 g/dL (3.4-5.0) Albumin/Globulin Ratio 1.1 (1.0-1.7) Review of Systems Review of Systems Complains of weakness and shortness of breath. Denies abdominal pain, nausea, vomiting, diarrhea. Assessment and Plan Assessmemt and Plan Assessment Acute Respiratory Failure Congestive Heart Failure Hypertension Flash Pulmonary Edema Elevated Troponin Plan 1. Cardiac monitoring 2. Continue antibiotics per pulm recommendations 3. Diuretics 4. Follow labs 5. Home meds 6. DVT prophylaxis 7. PT/OT 9. Oxygen via NC 9. Discharge today Comment Review of Relevant I have reviewed the following items fran (where applicable) has been applied. Labs Laboratory Tests Test 05/07/18 13:47 05/07/18 13:51 05/07/18 14:00 05/07/18 17:15 White Blood Count 11.2 x10^3/uL (4.0-11.0) Red Blood Count 5.88 x10^6/uL (4.30-5.70) Hemoglobin 17.7 g/dL (13.0-17.5) Hematocrit 53.4 % (39.0-53.0) Mean Corpuscular Volume 91 fL (79-100) Mean Corpuscular Hemoglobin 30 pg (25-35) Mean Corpuscular Hemoglobin Concent 33 g/dL (31-37) Red Cell Distribution Width 13.7 % (11.5-14.5) Platelet Count 206 x10^3/uL (140-400) Neutrophils (%) (Auto) 54 % (31-73) Lymphocytes (%) (Auto) 35 % (24-48) Monocytes (%) (Auto) 6 % (0-9) Eosinophils (%) (Auto) 4 % (0-3) Basophils (%) (Auto) 1 % (0-3) Neutrophils # (Auto) 6.1 x10^3uL (1.8-7.7) Lymphocytes # (Auto) 3.9 x10^3/uL (1.0-4.8) Monocytes # (Auto) 0.6 x10^3/uL (0.0-1.1) Eosinophils # (Auto) 0.4 x10^3/uL (0.0-0.7) Basophils # (Auto) 0.1 x10^3/uL (0.0-0.2) Prothrombin Time 13.6 SEC (11.7-14.0) Prothromb Time International Ratio 1.1 (0.8-1.1) Activated Partial Thromboplast Time 24 SEC (24-38) Sodium Level 136 mmol/L (136-145) Potassium Level 4.0 mmol/L (3.5-5.1) Chloride Level 96 mmol/L (98-107) Carbon Dioxide Level 30 mmol/L (21-32) Anion Gap 10 (6-14) Blood Urea Nitrogen 16 mg/dL (8-26) Creatinine 1.4 mg/dL (0.7-1.3) Estimated GFR (Cockcroft-Gault) 49.8 BUN/Creatinine Ratio 11 (6-20) Glucose Level 255 mg/dL (70-99) Lactic Acid Level 2.9 mmol/L (0.4-2.0) Calcium Level 9.0 mg/dL (8.5-10.1) Total Bilirubin 1.2 mg/dL (0.2-1.0) Aspartate Amino Transf (AST/SGOT) 17 U/L (15-37) Alanine Aminotransferase (ALT/SGPT) 20 U/L (16-63) Alkaline Phosphatase 84 U/L (46-116) Troponin I Quantitative 0.031 ng/mL (0.000-0.055) TO-Zcd-[id number]-Type Natriuretic Peptide 1003 pg/mL (0-124) Total Protein 8.1 g/dL (6.4-8.2) Albumin 4.3 g/dL (3.4-5.0) Albumin/Globulin Ratio 1.1 (1.0-1.7) Procalcitonin < 0.10 ng/mL (0.00-0.10) Bedside Troponin I 0.01 ng/ml (<0.08) O2 Saturation 99 % (92-99) Arterial Blood pH 7.24 (7.35-7.45) Arterial Blood pCO2 at Patient Temp 58 mmHg (35-46) Arterial Blood pO2 at Patient Temp 201 mmHg (65-108) Arterial Blood HCO3 24 mmol/L (21-28) Arterial Blood Base Excess -4 mmol/L (-3-3) FiO2 60 Nasal Screen MRSA (PCR) Negative (Negative) Test 05/07/18 18:00 05/08/18 04:25 05/09/18 04:15 Lactic Acid Level 1.3 mmol/L (0.4-2.0) Troponin I Quantitative 0.140 ng/mL (0.000-0.055) 0.730 ng/mL (0.000-0.055) White Blood Count 8.4 x10^3/uL (4.0-11.0) 7.1 x10^3/uL (4.0-11.0) Red Blood Count 5.24 x10^6/uL (4.30-5.70) 4.93 x10^6/uL (4.30-5.70) Hemoglobin 15.6 g/dL (13.0-17.5) 14.8 g/dL (13.0-17.5) Hematocrit 46.9 % (39.0-53.0) 43.8 % (39.0-53.0) Mean Corpuscular Volume 89 fL (79-100) 89 fL (79-100) Mean Corpuscular Hemoglobin 30 pg (25-35) 30 pg (25-35) Mean Corpuscular Hemoglobin Concent 33 g/dL (31-37) 34 g/dL (31-37) Red Cell Distribution Width 13.6 % (11.5-14.5) 13.4 % (11.5-14.5) Platelet Count 145 x10^3/uL (140-400) 129 x10^3/uL (140-400) Neutrophils (%) (Auto) 64 % (31-73) 69 % (31-73) Lymphocytes (%) (Auto) 26 % (24-48) 19 % (24-48) Monocytes (%) (Auto) 6 % (0-9) 7 % (0-9) Eosinophils (%) (Auto) 3 % (0-3) 4 % (0-3) Basophils (%) (Auto) 1 % (0-3) 2 % (0-3) Neutrophils # (Auto) 5.4 x10^3uL (1.8-7.7) 4.9 x10^3uL (1.8-7.7) Lymphocytes # (Auto) 2.2 x10^3/uL (1.0-4.8) 1.3 x10^3/uL (1.0-4.8) Monocytes # (Auto) 0.5 x10^3/uL (0.0-1.1) 0.5 x10^3/uL (0.0-1.1) Eosinophils # (Auto) 0.2 x10^3/uL (0.0-0.7) 0.3 x10^3/uL (0.0-0.7) Basophils # (Auto) 0.1 x10^3/uL (0.0-0.2) 0.1 x10^3/uL (0.0-0.2) Sodium Level 137 mmol/L (136-145) 138 mmol/L (136-145) Potassium Level 4.2 mmol/L (3.5-5.1) 4.0 mmol/L (3.5-5.1) Chloride Level 100 mmol/L (98-107) 101 mmol/L (98-107) Carbon Dioxide Level 29 mmol/L (21-32) 28 mmol/L (21-32) Anion Gap 8 (6-14) 9 (6-14) Blood Urea Nitrogen 17 mg/dL (8-26) 19 mg/dL (8-26) Creatinine 1.3 mg/dL (0.7-1.3) 1.1 mg/dL (0.7-1.3) Estimated GFR (Cockcroft-Gault) 54.3 65.8 BUN/Creatinine Ratio 13 (6-20) 17 (6-20) Glucose Level 147 mg/dL (70-99) 126 mg/dL (70-99) Calcium Level 9.1 mg/dL (8.5-10.1) 8.5 mg/dL (8.5-10.1) Total Bilirubin 1.0 mg/dL (0.2-1.0) 0.8 mg/dL (0.2-1.0) Aspartate Amino Transf (AST/SGOT) 14 U/L (15-37) 16 U/L (15-37) Alanine Aminotransferase (ALT/SGPT) 20 U/L (16-63) 22 U/L (16-63) Alkaline Phosphatase 67 U/L (46-116) 62 U/L (46-116) Total Protein 6.8 g/dL (6.4-8.2) 6.3 g/dL (6.4-8.2) Albumin 3.5 g/dL (3.4-5.0) 3.3 g/dL (3.4-5.0) Albumin/Globulin Ratio 1.1 (1.0-1.7) 1.1 (1.0-1.7) Triglycerides Level 131 mg/dL (0-150) Cholesterol Level 142 mg/dL (0-200) LDL Cholesterol, Calculated 78 mg/dL (0-100) VLDL Cholesterol, Calculated 26 mg/dL (0-40) Non-HDL Cholesterol Calculated 104 mg/dL (0-129) HDL Cholesterol 38 mg/dL (40-60) Cholesterol/HDL Ratio 3.7 Thyroid Stimulating Hormone (TSH) 2.241 uIU/mL (0.358-3.74) Laboratory Tests Test 05/09/18 04:15 White Blood Count 7.1 x10^3/uL (4.0-11.0) Red Blood Count 4.93 x10^6/uL (4.30-5.70) Hemoglobin 14.8 g/dL (13.0-17.5) Hematocrit 43.8 % (39.0-53.0) Mean Corpuscular Volume 89 fL (79-100) Mean Corpuscular Hemoglobin 30 pg (25-35) Mean Corpuscular Hemoglobin Concent 34 g/dL (31-37) Red Cell Distribution Width 13.4 % (11.5-14.5) Platelet Count 129 x10^3/uL (140-400) Neutrophils (%) (Auto) 69 % (31-73) Lymphocytes (%) (Auto) 19 % (24-48) Monocytes (%) (Auto) 7 % (0-9) Eosinophils (%) (Auto) 4 % (0-3) Basophils (%) (Auto) 2 % (0-3) Neutrophils # (Auto) 4.9 x10^3uL (1.8-7.7) Lymphocytes # (Auto) 1.3 x10^3/uL (1.0-4.8) Monocytes # (Auto) 0.5 x10^3/uL (0.0-1.1) Eosinophils # (Auto) 0.3 x10^3/uL (0.0-0.7) Basophils # (Auto) 0.1 x10^3/uL (0.0-0.2) Sodium Level 138 mmol/L (136-145) Potassium Level 4.0 mmol/L (3.5-5.1) Chloride Level 101 mmol/L (98-107) Carbon Dioxide Level 28 mmol/L (21-32) Anion Gap 9 (6-14) Blood Urea Nitrogen 19 mg/dL (8-26) Creatinine 1.1 mg/dL (0.7-1.3) Estimated GFR (Cockcroft-Gault) 65.8 BUN/Creatinine Ratio 17 (6-20) Glucose Level 126 mg/dL (70-99) Calcium Level 8.5 mg/dL (8.5-10.1) Total Bilirubin 0.8 mg/dL (0.2-1.0) Aspartate Amino Transf (AST/SGOT) 16 U/L (15-37) Alanine Aminotransferase (ALT/SGPT) 22 U/L (16-63) Alkaline Phosphatase 62 U/L (46-116) Total Protein 6.3 g/dL (6.4-8.2) Albumin 3.3 g/dL (3.4-5.0) Albumin/Globulin Ratio 1.1 (1.0-1.7) Microbiology 05/07/18 Blood Culture - Preliminary, Resulted NO GROWTH AFTER 1 DAY Medications Current Medications Nitroglycerin (Nitrostat) 0.4 mg PRN Q5MIN PRN SL CHEST PAIN Last administered on 05/07/18at 14:06; Start 05/07/18 at 14:00; Stop 05/08/18 at 14:18; Status DC Nitroglycerin (Nitrostat) 0.4 mg STK-MED ONCE SL ; Start 05/07/18 at 13:55; Stop 05/07/18 at 13:56; Status DC Aspirin (Children'S Aspirin) 324 mg 1X ONCE PO Last administered on 05/07/18at 15:26; Start 05/07/18 at 14:45; Stop 05/07/18 at 14:46; Status DC Piperacillin Sod/ Tazobactam Sod (Zosyn Per Pharmacy) 1 each PRN DAILY PRN MC SEE COMMENTS; Start 05/07/18 at 16:30; Stop 05/08/18 at 09:34; Status DC Piperacillin Sod/ Tazobactam Sod 3.375 gm/Sodium Chloride 50 ml @ 100 mls/hr Q6HRS IV Last administered on 05/07/18at 16:54; Start 05/07/18 at 17:00; Stop at 18:13; Status DC Ceftriaxone Sodium (Rocephin) 1 gm Q24H IVP Last administered on 05/08/18at 21: 18; Start 05/07/18 at 19:00 Doxycycline Hyclate (Vibra-Tab) 100 mg BID PO Last administered on 05/09/18at 08 :34; Start 05/07/18 at 21:00 Lactobacillus Rhamnosus (Culturelle) 1 cap BID PO Last administered on at 08:34; Start 05/08/18 at 21:00 Aspirin (Ecotrin) 81 mg DAILYWBKFT PO Last administered on 05/09/18at 08:34; Start 05/08/18 at 10:00 Carvedilol (Coreg) 6.25 mg BIDWMEALS PO Last administered on 05/09/18at 08:36; Start 05/08/18 at 10:00 Iodixanol (Visipaque 320) 100 ml STK-MED ONCE .ROUTE ; Start 05/08/18 at 12:39; Stop 05/08/18 at 12:40; Status DC Lidocaine HCl (Lidocaine 1% 20ml Vial) 20 ml STK-MED ONCE .ROUTE ; Start at 12:39; Stop 05/08/18 at 12:40; Status DC Heparin Sodium/ Sodium Chloride 1,000 ml @ As Directed STK-MED ONCE .ROUTE ; Start 05/08/18 at 12:40; Stop 05/08/18 at 12:41; Status DC Fentanyl Citrate (Fentanyl 2ml Vial) 100 mcg STK-MED ONCE .ROUTE ; Start at 13:00; Stop 05/08/18 at 13:01; Status DC Midazolam HCl (Versed) 2 mg STK-MED ONCE .ROUTE ; Start 05/08/18 at 13:00; Stop 05/08/18 at 13:01; Status DC Heparin Sodium/ Sodium Chloride (HEPARIN for ARTERIAL LINE FLUSH) 1,000 unit 1X ONCE IART Last administered on 05/08/18at 13:15; Start 05/08/18 at 13:15; Stop 05/08/18 at 13:37; Status DC Midazolam HCl (Versed) 2 mg 1X ONCE IV Last administered on 05/08/18at 13:15; Start 05/08/18 at 13:15; Stop 05/08/18 at 13:37; Status DC Fentanyl Citrate (Fentanyl 2ml Vial) 100 mcg 1X ONCE IV Last administered on at 13:15; Start 05/08/18 at 13:15; Stop 05/08/18 at 13:37; Status DC Iodixanol (Visipaque 320) 100 ml 1X ONCE IART Last administered on 05/08/18at 13:15; Start 05/08/18 at 13:15; Stop 05/08/18 at 13:37; Status DC Lidocaine HCl (Lidocaine 1% 20ml Vial) 20 ml 1X ONCE INJ Last administered on 05/08/18at 13:15; Start 05/08/18 at 13:15; Stop 05/08/18 at 13:37; Status DC Sodium Chloride (Normal Saline Flush) 3 ml QSHIFT PRN IV AFTER MEDS AND BLOOD DRAWS; Start 05/08/18 at 14:15 Sodium Chloride 1,000 ml @ 60 mls/hr [id number] IV Last administered on at 17:24; Start 05/08/18 at 14:12; Stop 05/08/18 at 18:11; Status DC Nitroglycerin (Nitrostat) 0.4 mg PRN Q5MIN PRN SL CHEST PAIN; Start 05/08/18 at 14:15 Active Scripts Active Reported Aspirin Ec (Aspirin) 81 Mg Tablet.dr 1 Tab PO DAILY Requip (Ropinirole Hcl) 1 Mg Tablet 2 Tab PO QHS take 1-3 hours before bedtime Simvastatin 40 Mg Tablet 40 Mg PO HS Sildenafil (Sildenafil Citrate) 20 Mg Tablet 100 Mg PO PRN PRN Omeprazole 40 Mg Capsule.dr 40 Mg PO DAILY Metformin Hcl 1,000 Mg Tablet 1,000 Mg PO BIDWMEALS Losartan Potassium 50 Mg Tablet 12.5 Mg PO DAILY Glipizide 10 Mg Tablet 1 Tab PO BID Fish Oil 1,000 Mg Capsule ([place]-3 Fatty Acids/Fish Oil) 1 Each Capsule 2 Each PO DAILY Vitamin D3 (Cholecalciferol (Vitamin D3)) 1,000 Unit Tablet 3,000 Unit PO DAILY Carvedilol (Carvedilol) 12.5 Mg Tablet 12.5 Mg PO BIDWMEALS Vitals/I & O Vital Sign - Last 24 Hours 05/08/18 05/08/18 05/08/18 05/08/18 10:48 11:00 12:00 12:00 Temp 98.0 98.0 Pulse 68 67 78 Resp 20 24 B/P (MAP) 162/89 119/73 (88) 117/61 (79) Pulse Ox 97 97 O2 Delivery Nasal Cannula Nasal Cannula Nasal Cannula O2 Flow Rate 2.0 2.0 2.0 05/08/18 05/08/18 05/08/18 05/08/18 13:15 14:00 14:03 14:45 Pulse 70 68 70 Resp 15 16 14 16 B/P (MAP) 127/73 (91) 129/80 (96) Pulse Ox 98 97 99 O2 Delivery Nasal Cannula Nasal Cannula Nasal Cannula O2 Flow Rate 2.0 2.0 2.0 05/08/18 05/08/18 05/08/18 05/08/18 15:00 15:15 15:30 15:45 Pulse 64 72 68 66 Resp 16 16 16 16 B/P (MAP) 135/73 (93) 131/72 (91) 125/74 (91) 127/70 (89) Pulse Ox 99 98 98 98 O2 Delivery Nasal Cannula Nasal Cannula Nasal Cannula Nasal Cannula O2 Flow Rate 2.0 2.0 2.0 2.0 05/08/18 05/08/18 05/08/18 05/08/18 16:00 16:00 17:00 17:24 Temp 98.7 98.7 Pulse 64 69 83 Resp 14 18 B/P (MAP) 144/74 (97) 124/71 (88) 124/71 Pulse Ox 98 98 O2 Delivery Nasal Cannula Nasal Cannula Nasal Cannula O2 Flow Rate 2.0 2.0 2.0 05/08/18 05/08/18 05/08/18 05/08/18 18:20 19:00 20:00 23:00 Temp 97.6 97.9 98.1 97.6 97.9 98.1 Pulse 87 77 71 Resp 16 18 17 B/P (MAP) 139/76 (97) 139/72 (94) 133/61 (85) Pulse Ox 96 92 94 O2 Delivery Room Air Room Air Room Air Room Air 05/09/18 05/09/18 05/09/18 02:52 07:00 08:36 Temp 98.0 97.9 98.0 97.9 Pulse 82 73 80 Resp 17 17 B/P (MAP) 125/63 (83) 173/71 (105) 151/80 Pulse Ox 93 96 O2 Delivery Room Air Room Air Intake and Output 05/08/18 05/08/18 05/09/18 15:00 23:00 07:00 Intake Total 270 ml 200 ml 400 ml Output Total 500 ml 300 ml 500 ml Balance -230 ml -100 ml -100 ml LYLY VALENCIA III DO May 09, 2018 10:14
[2018-05-09 11:00] VITALS: BP 132/64
--- NOTE | 2018-05-09 12:16 | DS ---
DATE OF DISCHARGE: 05/09/2018 ADMISSION DIAGNOSES: Respiratory failure and flash pulmonary edema. DISCHARGE DIAGNOSES: Resolving pulmonary edema, status post cardiac catheterization (he had 3 prior stents that were open. No new stent had been placed.) CONSULTS: Cardiology. PROCEDURES: Cardiac catheterization. HOSPITAL COURSE: The patient is a pleasant middle-aged male, who presented with a flash pulmonary edema and respiratory failure. The patient was admitted. We consulted Cardiology, did serial enzymes, serial EKGs and was taken to the slab puller. Apparently, the coronaries were clean. He does have three previous stents that are patent. We also consulted Dr. Van who agreed that the patient probably has diastolic heart failure and some COPD with an acute exacerbation. He was also treated with empiric antibiotics and p.r.n. BiPAP and IV Lasix. His troponin maxed out at 0.73. Overall, when the patient was seen and examined this morning, he looks great. We plan to discharge with close outpatient followup. DISPOSITION: Home. ACTIVITY: As tolerated. DIET: Cardiac. MEDICATIONS: Please see the MRAD. TOTAL TIME: Thirty-two minutes. LYLY VALENCIA DO DR: KHOA/umu JOB#: [id number] / [id number]
--- NOTE | 2018-05-09 15:09 | PDOC ---
CARDIO Progress Notes Date and Time Date of Service 05/09/2018 Time of Evaluation 1500 Subjective Subjective: No Chest Pain, No shortness of breath, No Palpitations Vitals Vitals Vital Signs Date Time Temp Pulse Resp B/P (MAP) Pulse Ox O2 Delivery O2 Flow Rate FiO2 05/09/18 11:00 97.5 70 18 132/64 (86) 96 Room Air 97.5 05/08/18 17:00 2.0 Weight Weight [ ] Input and Output Intake and Output Intake and Output 05/09/18 07:00 Intake Total 870 ml Output Total 1300 ml Balance -430 ml Intake Oral 870 ml Output Urine Total 1300 ml Laboratory Labs Laboratory Tests Test 05/09/18 04:15 White Blood Count 7.1 x10^3/uL (4.0-11.0) Red Blood Count 4.93 x10^6/uL (4.30-5.70) Hemoglobin 14.8 g/dL (13.0-17.5) Hematocrit 43.8 % (39.0-53.0) Mean Corpuscular Volume 89 fL (79-100) Mean Corpuscular Hemoglobin 30 pg (25-35) Mean Corpuscular Hemoglobin Concent 34 g/dL (31-37) Red Cell Distribution Width 13.4 % (11.5-14.5) Platelet Count 129 x10^3/uL (140-400) Neutrophils (%) (Auto) 69 % (31-73) Lymphocytes (%) (Auto) 19 % (24-48) Monocytes (%) (Auto) 7 % (0-9) Eosinophils (%) (Auto) 4 % (0-3) Basophils (%) (Auto) 2 % (0-3) Neutrophils # (Auto) 4.9 x10^3uL (1.8-7.7) Lymphocytes # (Auto) 1.3 x10^3/uL (1.0-4.8) Monocytes # (Auto) 0.5 x10^3/uL (0.0-1.1) Eosinophils # (Auto) 0.3 x10^3/uL (0.0-0.7) Basophils # (Auto) 0.1 x10^3/uL (0.0-0.2) Sodium Level 138 mmol/L (136-145) Potassium Level 4.0 mmol/L (3.5-5.1) Chloride Level 101 mmol/L (98-107) Carbon Dioxide Level 28 mmol/L (21-32) Anion Gap 9 (6-14) Blood Urea Nitrogen 19 mg/dL (8-26) Creatinine 1.1 mg/dL (0.7-1.3) Estimated GFR (Cockcroft-Gault) 65.8 BUN/Creatinine Ratio 17 (6-20) Glucose Level 126 mg/dL (70-99) Calcium Level 8.5 mg/dL (8.5-10.1) Total Bilirubin 0.8 mg/dL (0.2-1.0) Aspartate Amino Transf (AST/SGOT) 16 U/L (15-37) Alanine Aminotransferase (ALT/SGPT) 22 U/L (16-63) Alkaline Phosphatase 62 U/L (46-116) Total Protein 6.3 g/dL (6.4-8.2) Albumin 3.3 g/dL (3.4-5.0) Albumin/Globulin Ratio 1.1 (1.0-1.7) Microbiology Micro Microbiology 05/07/18 Blood Culture - Preliminary, Resulted NO GROWTH AFTER 2 DAYS Physical Exam HEENT: Neck Supple W Full Motion Chest: Symmetric LUNGS: Clear to Auscultation Heart: RRR (SR) Abdomen: Soft N/T Extremities: No Calf Tenderness Neurology: alert, oriented, follow commands Other Exams right groin arteriotomy site intact, no swelling or redness, neurovascular status to bilateral LE intact. Assessment Assessment 1. Acute respiratory failure with acute systolic CHF: compensated. Likely induced by uncontrolled HTN 2. Ischemic cardiomyopathy; s/p AICD ([facility]). Echo showed LVEF EF 25-30% via LHC 4. Accelerated HTN; controlled 5. NSTEMI; peaked 0.730. demand mediated with underlying diffuse disease/acute CHF and high BP. LHC as noted below Diffuse moderate coronary disease in the left circumflex and left anterior descending vessels. Patent stents in the LAD and diagonal branch. Dominant right coronary artery with mild disease. 6. Hyperlipidemia; on goal 7. Diabetes, II: as PCP 8. CKD; is to have outpatient US next week Recommendations 1. Pt due to see [facility] next week. 2. Continue with home zocor. Continue with coreg. losartan ASA. Start on low dose lasix. 3. Recommend cardiac rehab 4. Contique with optimization. possibly a candidate for entresto. Defer to [place] morphology teacher YUKI NAVA APRN May 09, 2018 15:09
[2018-05-09] MEDS ORDERED: CARV6.25 PO (15:25)
[2018-05-09] MEDS ORDERED: FURO-69 PO (15:26)
[2018-05-09] MEDS ORDERED: LOSA25TA PO (15:28)
--- NOTE | 2018-05-09 16:00 | NUR ---
Discharge Note: TOSHIA CHRISTIANSON Discharge instructions and discharge home medications reviewed with patient and a copy given. All questions have been answered and understanding verbalized. The following instructions and handouts were given: CHF booklet, post heart cath instructions. Discontinued lines and drains: Left A/C. Patient discharged to home with .
[2018-05-10] MEDS ORDERED: FUROSEMIDE 20 MG TABLET PO SCH (09:00)
[2018-05-10] MEDS ORDERED: LOSARTAN POTASSIUM 25 MG TABLET. PO SCH (09:00)
== END 2018-05-09 16:15 | disposition home or self-care (01) | DRG 280 ==
LOC: ER 13:38 → ED HOLD 14:58 → 1 WEST ICU 17:30 → 2 SOUTH 05-08 18:35
PROVIDERS: ADMIT Family Medicine; ATTEND Family Medicine
PROC: 5A09357 Assistance with Respiratory Ventilation, Less than 24 Consecutive Hours, Continuous Positive Airway Pressure (ICD-10-PCS; 2018-05-07)
PROC: 4A023N7 Measurement of Cardiac Sampling and Pressure, Left Heart, Percutaneous Approach (ICD-10-PCS; principal; 2018-05-08)
PROC: B2151ZZ Fluoroscopy of Left Heart using Low Osmolar Contrast (ICD-10-PCS; 2018-05-08)
PROC: B2111ZZ Fluoroscopy of Multiple Coronary Arteries using Low Osmolar Contrast (ICD-10-PCS; 2018-05-08)
DX: I21.4 Non-ST elevation (NSTEMI) myocardial infarction (principal); J96.01 Acute respiratory failure with hypoxia; I50.43 Acute on chronic combined systolic (congestive) and diastolic (congestive) heart failure; I13.0 Hypertensive heart and chronic kidney disease with heart failure and stage 1 through stage 4 chronic kidney disease, or unspecified chronic kidney disease; J44.1 Chronic obstructive pulmonary disease with (acute) exacerbation; E11.22 Type 2 diabetes mellitus with diabetic chronic kidney disease; E78.00 Pure hypercholesterolemia, unspecified; M19.90 Unspecified osteoarthritis, unspecified site; E78.5 Hyperlipidemia, unspecified; F17.210 Nicotine dependence, cigarettes, uncomplicated; I25.10 Atherosclerotic heart disease of native coronary artery without angina pectoris; I25.5 Ischemic cardiomyopathy; K21.9 Gastro-esophageal reflux disease without esophagitis; N18.9 Chronic kidney disease, unspecified; Z82.49 Family history of ischemic heart disease and other diseases of the circulatory system; Z82.5 Family history of asthma and other chronic lower respiratory diseases; Z87.01 Personal history of pneumonia (recurrent); Z90.49 Acquired absence of other specified parts of digestive tract; Z95.0 Presence of cardiac pacemaker; Z95.5 Presence of coronary angioplasty implant and graft; Z95.810 Presence of automatic (implantable) cardiac defibrillator; Z79.899 Other long term (current) drug therapy
CPT/HCPCS: 36415; 36600; 71045; 80053; 80061; 82805; 83605; 83880; 84145; 84443; 84484; 85025; 85610; 85730; 87040; 87641; 93005; 93308; 93320; 93325; 93458; 94660; 96374; 99152; 99153; 99291; C1760; C1769; C1892; G0269; J0696; J1644; J2250; J2543; J3010; J7030; Q9967; C1771; G0378